=== PATIENT | male | born 1930 | race African-American/Black ===

== ENCOUNTER 2018-07-07 20:01 | Inpatient (IN) | payer MEDICARE ==
[2018-07-07] MEDS ORDERED: NICARDIPINE HCL RTU, ISO-OS 20 MG/200 ML RTUINJ IV PRN (20:26)
--- NOTE | 2018-07-07 20:39 | ER Document Report ---
ED General - General Stated Complaint: HYPERTENSION Time Seen by Provider: 07/07/18 20:25 Mode of Arrival: Medic Information source: Patient, Relative, Emergency Med Personnel Notes: This is an 87-year-old man with a history of hypertension, CVA (left hemiparesis ) recently came down from [place] June 23. Patient has had confusion over the last day and difficulty ambulating. He went to the urgent care and his blood pressure was 270/170 and EMS was called and brought the patient to the ER. He was given 0.2 mg of clonidine at the urgent care prior to transfer. Here in the emergency room, he is alert and answering questions and he does appear somewhat confused. His blood pressure is 253/144 His baseline is that he ambulates with a Rollator and he is unstable at times. - HPI Onset: Yesterday Onset/Duration: Gradual Quality of pain: No pain Severity: None Pain Level: Denies Associated symptoms: denies: Chest pain, Shortness of breath Exacerbated by: Denies Relieved by: Denies Similar symptoms previously: No Recently seen / treated by doctor: No - Related Data Allergies/Adverse Reactions: No Known Allergies Allergy (Unverified 07/07/18 20:48) Past Medical History - General Information source: Patient, Relative - Social History Smoking Status: Never Smoker Cigarette use (# per day): No Chew tobacco use (# tins/day): No Frequency of alcohol use: None Drug Abuse: None Lives with: Family Family History: None Patient has suicidal ideation: No Patient has homicidal ideation: No - Past Medical History Cardiac Medical History: Reports: Hx Hypertension Pulmonary Medical History: Reports: None EENT Medical History: Reports: None Neurological Medical History: Reports: None Endocrine Medical History: Reports: None Renal/ Medical History: Reports: None Malignancy Medical History: Reports None GI Medical History: Reports: None Musculoskeletal Medical History: Reports None Skin Medical History: Reports None Psychiatric Medical History: Reports: None Traumatic Medical History: Reports: None Infectious Medical History: Reports: None Surgical Hx: Negative Review of Systems - Review of Systems Constitutional: denies: Chills, Fever EENT: No symptoms reported Cardiovascular: See HPI. denies: Chest pain, Palpitations, Heart racing Respiratory: No symptoms reported Gastrointestinal: No symptoms reported Genitourinary: No symptoms reported Male Genitourinary: No symptoms reported Musculoskeletal: No symptoms reported Skin: No symptoms reported Hematologic/Lymphatic: No symptoms reported Neurological/Psychological: See HPI Physical Exam - Vital signs Vitals: BP 253/144 H 07/07/18 20:10 Notes: Physical exam: GENERAL: 87-year-old man, alert he does appear confused, no acute distress. Pressure 244/140 HEAD: Atraumatic, normocephalic. EYES: Pupils equal round and reactive to light, extraocular movements intact, sclera anicteric, conjunctiva are normal. ENT: TMs normal, nares patent, oropharynx clear without exudates. Moist mucous membranes. NECK: Normal range of motion, supple without obvious mass or JVD. LUNGS: Breath sounds clear to auscultation bilaterally and equal. No wheezes rales or rhonchi. HEART: Regular rate and rhythm without murmurs, rubs or gallops. ABDOMEN: Soft, normoactive bowel sounds. No tenderness to palpation. No guarding, no rebound. No masses appreciated. EXTREMITIES: Normal range of motion, no pitting or edema. No clubbing or cyanosis. NEUROLOGICAL: Cranial nerves II through XII grossly intact. Normal speech, moving all extremities. PSYCH: Normal mood, normal affect. SKIN: Warm, Dry, normal turgor, no rashes or lesions noted. Course - Re-evaluation Re-evalutation: 07/08/18 01:37 Patient was treated with IV nicardipine drip. Blood pressure was brought down and the drip was is continued. CT of the head shows no bleed. Discern clearly with the confusion/mental status twisting frame changer the last 24 hours in the setting of an excessively elevated blood pressure is that he may have had an ischemic stroke. We will admit the patient to the hospital and follow his blood pressure. - Vital Signs Vital signs: Temp Pulse Resp BP Pulse Ox 12 168/89 H 97 07/07/18 23:31 07/07/18 23:31 07/07/18 23:31 - Laboratory Result Diagrams: 07/07/18 20:40 07/07/18 20:40 Laboratory results interpreted by me: 07/07/18 07/07/18 20:40 20:40 WBC 11.1 H RBC 5.89 H MCH 26.9 L Est GFR (Non-Af Amer) 59 L Creatine Kinase 381 H Total Protein 8.5 H - Diagnostic Test Radiology reviewed: Image reviewed, Reports reviewed - CT shows no acute bleed - EKG Interpretation by Me Rate: Bradycardia Rhythm: NSR - EKG shows sinus bradycardia with a ventricular rate of 57, no acute ST-T wave changes Critical Care Note - Critical Care Note Total time excluding time spent on procedures (mins): 60 Discharge - Discharge Clinical Impression: Altered mental status, Uncontrolled blood pressure Condition: Stable Disposition: ADMITTED INPATIENT Admitting Provider: Hospitalist - Dr Jolley Unit Admitted: Telemetry
[2018-07-07] MEDS ORDERED: NICARDIPINE HCL RTU, ISO-OS 20 MG/200 ML RTUINJ IV ONE (20:43)
[2018-07-07 20:58] LABS: ABSOLUTE BASOPHILS # (AUTO) 0.1 10^3/uL (0.0-0.2); ABSOLUTE EOSINOPHILS # (AUTO) 0.2 10^3/uL (0.0-0.6); ABSOLUTE LYMPHOCYTES (AUTO) 2.3 10^3/uL (0.5-4.7); ABSOLUTE MONOCYTES (AUTO) 0.9 10^3/uL (0.1-1.4); ABSOLUTE NEUT (AUTO) 7.7 10^3/uL (1.7-8.2); EOSINOPHILS % (AUTO) 1.5 % (0-6); HEMATOCRIT 47.6 % (37.9-51.0); HEMOGLOBIN 15.8 g/dL (13.5-17.0); LYMPHOCYTES % (AUTO) 20.6 % (13-45); MEAN CORPUSCULAR HEMOGLOBIN 26.9 pg (27.0-33.4); MEAN CORPUSCULAR HGB CONC 33.2 g/dL (32.0-36.0); MEAN CORPUSCULAR VOLUME 81 fl (80-97); MONOCYTES % (AUTO) 7.8 % (3-13); PLATELET COUNT 221 10^3/uL (150-450); RED BLOOD COUNT 5.89 10^6/uL (4.35-5.55); RED CELL DISTRIBUTION WIDTH 13.9 % (11.5-14.0); SEGMENTED NEUTROPHILS % (AUTO) 69.1 % (42-78); TOTAL CELLS COUNTED % (AUTO) 100 %; WHITE BLOOD COUNT 11.1 10^3/uL (4.0-10.5)
--- NOTE | 2018-07-07 21:15 | RADIOLOGY REPORT (SQ) ---
PROCEDURE: CT OF THE HEAD WITHOUT INTRAVENOUS CONTRAST HISTORY: delta ms Indication: Same as above Comparison: None Technique: The study was done on 07/07/2018 at 9:[address] of the head was done without intravenous contrast was done in the orthogonal planes. This exam was performed according to our departmental dose-optimization program, which includes automated exposure control, adjustment of the mA and/or KV according to the patient's size and/or use of iterative reconstruction technique. FINDINGS: There is no intracranial hemorrhage, midline shift mass effect or acute focal infarct. There is prominence of the sylvian fissures and the cortical sulci reflecting age related volume loss. There is periventricular and deep white matter low attenuation, most likely related to small vessel white matter ischemic disease. If clinical concern exists regarding an acute ischemic/vascular pathology being responsible for patient's symptomatology, an MRI of the brain is more sensitive than the current study, in ruling out such a possibility. There is good edwards/white matter differentiation. The ventricular system is normal. The mastoid air cells are unremarkable . The paranasal sinuses are unremarkable . There is no visualization of acute fractures involving the calvarium or the skull base. IMPRESSION: There is no acute intracranial abnormality. Age related and chronic involutional changes are seen.
[2018-07-07 21:16] LABS: ALANINE AMINOTRANSFERASE 30 U/L (21-72); ALBUMIN 4.5 g/dL (3.5-5.0); ALKALINE PHOSPHATASE 84 U/L (38-126); ANION GAP 15 (5-19); ASPARTATE AMINO TRANSFERASE 38 U/L (17-59); BILIRUBIN,DIRECT 0.4 mg/dL (0.0-0.4); BILIRUBIN,TOTAL 1.1 mg/dL (0.2-1.3); BLOOD UREA NITROGEN 15 mg/dL (7-20); CALCIUM 9.6 mg/dL (8.4-10.2); CARBON DIOXIDE 23 mmol/L (22-30); CHLORIDE 104 mmol/L (98-107); CREATINE KINASE 381 U/L (55-170); GLUCOSE 83 mg/dL (75-110); POTASSIUM 4.1 mmol/L (3.6-5.0); SODIUM 141.8 mmol/L (137-145); TOTAL PROTEIN 8.5 g/dL (6.3-8.2)
--- NOTE | 2018-07-07 21:17 | RADIOLOGY REPORT (SQ) ---
PROCEDURE: XR CHEST 1 VIEW HISTORY: confusion COMPARISON: None TECHNIQUE: The study was done on 07/07/2018 at 9:07 PM Single projection of the chest was done. FINDINGS: There is soft tissue swelling in the right paratracheal region of uncertain etiology. There are no discrete airspace infiltrates, pneumothoraces or pleural effusions. The pulmonary vascularity is normal. The cardiomediastinal silhouette is otherwise unremarkable. IMPRESSION: There is soft tissue swelling in the right paratracheal region of uncertain etiology. This could be due to prominent superior vena cava or due to a mass and needs to be further assessed with a dedicated CT of the chest .
[2018-07-07 21:31] LABS: CREATINE KINASE MB 1.11 ng/mL (<4.55)
[2018-07-07 21:34] LABS: TROPONIN I 0.05 ng/mL
[2018-07-08] MEDS ORDERED: ACETAMINOPHEN 325 MG TABLET PO PRN (00:20)
[2018-07-08] MEDS ORDERED: PROMETHAZINE HCL 25 MG TABLET PO PRN (00:20)
[2018-07-08] MEDS ORDERED: MAG HYDROX/AL HYDROX/SIMETH SUSP 30 ML UDCUP PO PRN (00:20)
[2018-07-08] MEDS ORDERED: HYDRALAZINE HCL 50 MG TABLET PO ONE (00:45)
--- NOTE | 2018-07-08 00:55 | PDOC H&P ---
History of Present Illness Admission Date/PCP: 07/08/2018 None Patient complains of: Altered Mental Status History of Present Illness: KIM GANDHI is a 87 year old male who comes to the emergency department with altered mental status, niece and sister are at the bedside. Her niece tells me that 2 days ago his mood has change, he was more argumentative and blue. She tells me that they have been doing a lot of exercising lately as he is staying with them from [place] since 06/23, niece tells me that he used to be laying in the bed most of the day in [place]. Tells me that he takes his medications in the wrong way, not as prescribed. Walks with a Rollator walker. Thursday was noted weaker, has to be walking with assistance. Thursday he has been hearing music all night, was talking about babies, was incontinent which is not his baseline, he was confusing his family members with somebody else. He was taken to the Urgent clinic where his blood pressure was noted 270/170, given 0.2 of clonidine p.o. Patient was sent to the emergency department and was a started on Nicardipine drip; it was discontinue the pressure was 160s over 80s. Still encephalopathic but improved from prior. Past Medical History Cardiac Medical History: Reports: Hypertension Neurological Medical History: Reports: Ischemic CVA Neurological History Note: Minimal left hemiparesis Past Surgical History Past Surgical History: Right knee surgery Past Surgical History: Reports: Other Social History Information Source: Relative Lives with: Family Smoking Status: Never Smoker Frequency of Alcohol Use: None Hx Recreational Drug Use: No Hx Prescription Drug Abuse: No Family History Parental Family History Reviewed: Yes - Mother with history of cva in her 70s Children Family History Reviewed: Unknown Sibling(s) Family History Reviewed.: Unknown Medication/Allergy Allergies/Adverse Reactions: No Known Allergies Allergy (Unverified 07/07/18 20:48) Review of Systems Review of Systems: As outlined in the HPI, others negative. Of note of the patient is still a mild encephalopathic Physical Exam Vital Signs: Temp Pulse Resp BP Pulse Ox 12 168/89 H 97 07/07/18 23:31 07/07/18 23:31 07/07/18 23:31 Intake & Output 07/06/18 07/07/18 07/08/18 06:59 06:59 06:59 Intake Total 35 Balance 35 Weight 77.111 kg Additional comments: General appearance: Well-developed, well-nourished, alert and cooperative, and appears to be in no acute distress Head: Normocephalic Eyes: PEERL, EOMI, vision is grossly intact. Ears: External auditory canal and tympanic membranes clear, hearing grossly intact. Nose: No nasal discharge. Throat: Oral cavity and pharynx normal. No inflammation, swelling, exudate or lesions. Neck: Neck supple, nontender without lymphadenopathy, masses or thyromegaly. Cardiac: Normal S1 and S2. No S3, S4 or murmurs. Rhythm is regular. There is no peripheral edema, cyanosis or pallor. Extremities are warm and well perfused. Capillary refill is less than 2 seconds. No carotid bruits. Lungs: Clear to auscultation and percussion without rales, rhonchi, wheezing or diminished breath sounds. Not using accessory muscles. Abdomen: Positive bowel sounds. Soft. Nondistended, nontender. No guarding or rebound. No masses. No hepatosplenomegaly Extremities: No significant deformity or joint abnormality. No edema. Peripheral pulses intact. No varicosities. Neurological: Cranial nerves II through XII grossly intact. Strength and sensation symmetric and intact throughout. Reflexes 2+ throughout. Skin: Skin normal color, texture and turgor with no lesions or eruptions, warm and dry. Psychiatric: The mental examination revealed the patient was oriented to person , place and time, he has hard time recognizing his niece and sister at the bedside Results Laboratory Results: 07/07/18 20:40 07/07/18 20:40 07/07/18 07/07/18 20:40 20:40 WBC 11.1 H RBC 5.89 H Hgb 15.8 Hct 47.6 MCV 81 MCH 26.9 L MCHC 33.2 RDW 13.9 Plt Count 221 Seg Neutrophils % 69.1 Lymphocytes % 20.6 Monocytes % 7.8 Eosinophils % 1.5 Basophils % 1.0 Absolute Neutrophils 7.7 Absolute Lymphocytes 2.3 Absolute Monocytes 0.9 Absolute Eosinophils 0.2 Absolute Basophils 0.1 Sodium 141.8 Potassium 4.1 Chloride 104 Carbon Dioxide 23 Anion Gap 15 BUN 15 Creatinine 1.18 Est GFR ( Amer) > 60 Est GFR (Non-Af Amer) 59 L Glucose 83 Calcium 9.6 Total Bilirubin 1.1 AST 38 ALT 30 Alkaline Phosphatase 84 Total Protein 8.5 H Albumin 4.5 07/07/18 07/07/18 20:40 20:40 Creatine Kinase 381 H CK-MB (CK-2) 1.11 Troponin I 0.050 Impressions: Chest X-Ray 07/07/18 20:25 IMPRESSION: There is soft tissue swelling in the right paratracheal region of uncertain etiology. This could be due to prominent superior vena cava or due to a mass and needs to be further assessed with a dedicated CT of the chest . Head CT 07/07/18 20:26 IMPRESSION: There is no acute intracranial abnormality. Age related and chronic involutional changes are seen. Assessment & Plan - Diagnosis (1) Hypertensive encephalopathy Is this a current diagnosis for this admission?: Yes Plan: Patient had initially a blood pressure of 270/170 in the urgent care, 0.2 mg of clonidine given, upon arrival to our facility blood pressure was 253/144, patient is started on nicardipine drip that was read discontinue. Last blood pressure was 160s over 90s, patient has a still encephalopathy but is improving. I noted that the patient became bradycardic with a heart rate in the 50s. Patient is at home on lisinopril 2.5 mg daily and clonidine 0.1 mg twice daily but he has been taking this medication once a day. Due to his bradycardia I will place him on hydralazine 50 mg 3 times a day and I will increase lisinopril to 5 mg daily. IV hydralazine as needed. Will close monitor of his mental status. Telemetry monitoring. Cardiac enzymes 3. Patient is asymptomatic. We will have permissive hypertension overnight. Mild elevation of troponins 0.05, As I said before we will cycle these 3. CT head negative. (2) Hypertension Is this a current diagnosis for this admission?: Yes Plan: As Above - Time Time Spent: 30 to 50 Minutes
--- NOTE | 2018-07-08 01:18 | RADIOLOGY REPORT (SQ) ---
EXAM DESCRIPTION: CT CHEST WITH IV CONTRAST COMPLETED DATE/TME: 07/07/2018 22:44 CLINICAL HISTORY: mass chest COMPARISON: Chest radiograph performed 07/07/2018 TECHNIQUE: Axial CT images of the chest obtained following the uncomplicated intravenous administration of 80 mL Omnipaque 350 from the thoracic inlet through the diaphragm. Coronal and sagittal reformatted images available. DLP: 516.48 mGy-cm FINDINGS: Chest: Thyroid:No abnormalities of the visualized thyroid. Great Vessels:Great vessels have normal anatomic configuration. Thoracic Aorta: Atherosclerotic calcification of the thoracic aorta. Pulmonary arteries:The main pulmonary artery is not dilated. Heart: Coronary artery atherosclerosis. No cardiomegaly or pericardial effusion. Lymph Nodes:No enlarged mediastinal lymph nodes identified. Esophagus:No abnormalities of the esophagus identified Other: Soft tissue abnormality noted on chest x-ray is due to tortuosity of the right brachiocephalic artery and right internal carotid artery. Lungs: Minimal bilateral dependent atelectasis. No mass or concerning pulmonary nodule identified. Pleura:No pleural effusion or pneumothorax. Trachea/Airways:No abnormalities of the visualized trachea or airways. Bones: No acute abnormalities of the trachea. Upper Abdomen:Limited images of the upper abdomen demonstrate no definite abnormalities of visualized portions of the liver, pancreas, and spleen. Prior cholecystectomy. IMPRESSION: 1. Soft tissue abnormality noted on chest x-ray is due to tortuosity of the right brachiocephalic artery and right internal carotid artery. No pulmonary masses identified. 2. Coronary artery atherosclerosis. This exam was performed according to our departmental dose-optimization program, which includes automated exposure control, adjustment of the mA and/or kV according to patient size and/or use of iterative reconstruction technique.
[2018-07-08] MEDS: HYDRALAZINE HCL INJ/PF 20 MG/1 ML SDV IV PRN ×3 (02:14→18:44)
[2018-07-08 04:08] LABS: APPEARANCE,URINE CLEAR; BILIRUBIN,URINE NEGATIVE (NEGATIVE); COLOR,URINE STRAW; GLUCOSE, URINE NEGATIVE (NEGATIVE); KETONES,URINE NEGATIVE (NEGATIVE); LEUKOCYTE ESTERASE,URINE NEGATIVE (NEGATIVE); NITRITE,URINE NEGATIVE (NEGATIVE); PROTEIN,URINE NEGATIVE (NEGATIVE); URINE SPECIFIC GRAVITY 1.014; UROBILINOGEN,URINE NEGATIVE mg/dL (<2.0)
[2018-07-08] MEDS ORDERED: HYDRALAZINE HCL 50 MG TABLET PO SCH (06:00)
[2018-07-08] MEDS ORDERED: LISINOPRIL 5 MG TABLET PO SCH (08:00)
--- NOTE | 2018-07-08 08:20 | EKG REPORT ---
SEVERITY:- ABNORMAL ECG - SINUS RHYTHM CONSIDER LEFT VENTRICULAR HYPERTROPHY : Confirmed by: Timothy Palma MD 08-Jul-2018 07:33:44
[2018-07-08 09:19] LABS: ABSOLUTE BASOPHILS # (AUTO) 0.1 10^3/uL (0.0-0.2); ABSOLUTE EOSINOPHILS # (AUTO) 0.2 10^3/uL (0.0-0.6); ABSOLUTE LYMPHOCYTES (AUTO) 1.9 10^3/uL (0.5-4.7); ABSOLUTE MONOCYTES (AUTO) 0.6 10^3/uL (0.1-1.4); ABSOLUTE NEUT (AUTO) 7.3 10^3/uL (1.7-8.2); BASOPHILS % (AUTO) 0.9 % (0-2); EOSINOPHILS % (AUTO) 1.8 % (0-6); HEMATOCRIT 50.9 % (37.9-51.0); LYMPHOCYTES % (AUTO) 18.6 % (13-45); MEAN CORPUSCULAR HEMOGLOBIN 26.9 pg (27.0-33.4); MEAN CORPUSCULAR HGB CONC 33.4 g/dL (32.0-36.0); MEAN CORPUSCULAR VOLUME 81 fl (80-97); MONOCYTES % (AUTO) 6.2 % (3-13); PLATELET COUNT 216 10^3/uL (150-450); RED BLOOD COUNT 6.32 10^6/uL (4.35-5.55); RED CELL DISTRIBUTION WIDTH 14.1 % (11.5-14.0); SEGMENTED NEUTROPHILS % (AUTO) 72.5 % (42-78); TOTAL CELLS COUNTED % (AUTO) 100 %; WHITE BLOOD COUNT 10.1 10^3/uL (4.0-10.5)
[2018-07-08 09:29] LABS: URINE AMPHETAMINES SCREEN NEGATIVE; URINE BARBITURATES SCREEN NEGATIVE; URINE BENZODIAZEPINES SCREEN NEGATIVE; URINE COCAINE SCREEN NEGATIVE; URINE MARIJUANA (THC) SCREEN NEGATIVE; URINE METHADONE SCREEN NEGATIVE; URINE PHENCYCLIDINE SCREEN NEGATIVE
[2018-07-08 09:29] LABS: ANION GAP 14 (5-19); BLOOD UREA NITROGEN 13 mg/dL (7-20); CARBON DIOXIDE 24 mmol/L (22-30); CHLORIDE 104 mmol/L (98-107); CHOLESTEROL 176.07 mg/dL (0-200); DIRECT LDL 107 mg/dL (<100); GLUCOSE 93 mg/dL (75-110); POTASSIUM 3.6 mmol/L (3.6-5.0); SODIUM 141.8 mmol/L (137-145); TRIGLYCERIDES 108 mg/dL (<150); VLDL CHOLESTEROL 21.6 mg/dL (10-31)
[2018-07-08] MEDS ORDERED: LISINOPRIL 10 MG TABLET PO ONE (10:30)
[2018-07-08] MEDS: ENOXAPARIN SODIUM INJ 40 MG/0.4 ML DISP.SYRIN SUBCUT SCH (10:36)
[2018-07-08] MEDS ORDERED: AMLODIPINE BESYLATE 2.5 MG TABLET PO PRN (14:04)
--- NOTE | 2018-07-08 16:44 | PDOC PROGRESS REPORT ---
Subjective Progress Note for:: 07/08/18 Subjective:: KIM GANDHI is a 87 year old male who came to the emergency department with altered mental status beginning 2 days [facility] evidenced by mood swings and being argumentative, progressing to confusion and auditory hallucinations. He tells me that he takes his medications as prescribed and walks with a wheeled walker when he is at his baseline. When ask how he is doing today he states, "My blood pressure was high but they tell me it is better now. I don't know I don't feel any different." He denies pain and all other acute symptoms including angina, nausea, dyspnea, diaphoresis, headache, weakness, numbness or tingling and dizziness. Reason For Visit: Hypertensive emergency with acute encephalopathy Physical Exam Vital Signs: Temp Pulse Resp BP Pulse Ox 15 184/94 H 95 07/08/18 15:31 07/08/18 15:31 07/08/18 15:31 General appearance: PRESENT: no acute distress, cooperative Head exam: PRESENT: atraumatic, normocephalic Eye exam: PRESENT: conjunctiva pink, EOMI, PERRLA. ABSENT: nystagmus, scleral icterus Ear exam: PRESENT: normal external ear exam. ABSENT: bleeding, drainage Mouth exam: PRESENT: moist, neck supple, tongue midline Neck exam: PRESENT: full ROM. ABSENT: JVD, meningismus, tenderness, thyromegaly , tracheal deviation Respiratory exam: PRESENT: clear to auscultation beth[place], symmetrical, unlabored Cardiovascular exam: PRESENT: RRR. ABSENT: clicks, diastolic murmur, gallop, rubs, systolic murmur, tachycardia Pulses: PRESENT: normal carotid pulses, normal radial pulses, normal dorsalis pedis pul Vascular exam: PRESENT: normal capillary refill. ABSENT: pallor GI/Abdominal exam: PRESENT: normal bowel sounds, soft. ABSENT: distended, tenderness Rectal exam: PRESENT: deferred Extremities exam: ABSENT: clubbing, joint swelling, pedal edema Musculoskeletal exam: PRESENT: full ROM, normal inspection. ABSENT: tenderness Neurological exam: PRESENT: alert, awake, oriented to person, oriented to place , oriented to situation, CN II-XII grossly intact. ABSENT: oriented to time, motor sensory deficit Psychiatric exam: PRESENT: appropriate affect, normal mood Skin exam: ABSENT: jaundice, rash, urticaria Results Laboratory Results: 07/08/18 06:23 07/08/18 06:23 07/08/18 07/08/18 06:23 06:23 WBC 10.1 RBC 6.32 H Hgb 17.0 Hct 50.9 MCV 81 MCH 26.9 L MCHC 33.4 RDW 14.1 H Plt Count 216 Seg Neutrophils % 72.5 Lymphocytes % 18.6 Monocytes % 6.2 Eosinophils % 1.8 Basophils % 0.9 Absolute Neutrophils 7.3 Absolute Lymphocytes 1.9 Absolute Monocytes 0.6 Absolute Eosinophils 0.2 Absolute Basophils 0.1 Sodium 141.8 Potassium 3.6 Chloride 104 Carbon Dioxide 24 Anion Gap 14 BUN 13 Creatinine 1.17 Est GFR ( Amer) > 60 Est GFR (Non-Af Amer) 59 L Glucose 93 Calcium 10.0 Magnesium 2.1 Triglycerides 108 Cholesterol 176.07 LDL Cholesterol Direct 107 H VLDL Cholesterol 21.6 HDL Cholesterol 45 07/08/18 07/08/18 06:23 12:40 Troponin I 0.052 0.106 EKG Comments: Sinus Bradycardia @ 57 BPM, LVH Impressions: Chest X-Ray 07/07/18 20:25 IMPRESSION: There is soft tissue swelling in the right paratracheal region of uncertain etiology. This could be due to prominent superior vena cava or due to a mass and needs to be further assessed with a dedicated CT of the chest . Head CT 07/07/18 20:26 IMPRESSION: There is no acute intracranial abnormality. Age related and chronic involutional changes are seen. Chest CT 07/07/18 22:44 IMPRESSION: 1. Soft tissue abnormality noted on chest x-ray is due to tortuosity of the right brachiocephalic artery and right internal carotid artery. No pulmonary masses identified. 2. Coronary artery atherosclerosis. This exam was performed according to our departmental dose-optimization program, which includes automated exposure control, adjustment of the mA and/or kV according to patient size and/or use of iterative reconstruction technique. Assessment & Plan - Diagnosis (1) Hypertensive emergency without congestive heart failure Is this a current diagnosis for this admission?: Yes Plan: Control BP with appropriate antihypertensive agents. Observe for continued resolution of end organ symptoms (encephalopathy). Monitor other systems that may have been affected. (2) Acute encephalopathy Is this a current diagnosis for this admission?: Yes Plan: Control BP and provide supportive care. MEND assessments q4hr. - Time Time Spent with patient: 35 or more minutes Medications reviewed and adjusted accordingly: Yes Anticipated discharge: Home
[2018-07-08] MEDS: AMLODIPINE BESYLATE 10 MG TABLET PO SCH (17:00)
[2018-07-09] MEDS: HYDRALAZINE HCL INJ/PF 20 MG/1 ML SDV IV PRN ×3 (01:25→21:32)
[2018-07-09] MEDS ORDERED: METOPROLOL TARTRATE 25 MG TABLET PO PRN (04:08)
[2018-07-09] MEDS ORDERED: METOPROLOL TARTRATE PF/INJ 5 MG/5 ML SDV IV ONE (04:15)
[2018-07-09 05:46] LABS: ABSOLUTE BASOPHILS # (AUTO) 0.1 10^3/uL (0.0-0.2); ABSOLUTE EOSINOPHILS # (AUTO) 0.1 10^3/uL (0.0-0.6); ABSOLUTE LYMPHOCYTES (AUTO) 1.6 10^3/uL (0.5-4.7); ABSOLUTE MONOCYTES (AUTO) 0.9 10^3/uL (0.1-1.4); ABSOLUTE NEUT (AUTO) 9.7 10^3/uL (1.7-8.2); BASOPHILS % (AUTO) 0.8 % (0-2); EOSINOPHILS % (AUTO) 0.4 % (0-6); LYMPHOCYTES % (AUTO) 12.7 % (13-45); MEAN CORPUSCULAR HGB CONC 33.9 g/dL (32.0-36.0); MEAN CORPUSCULAR VOLUME 80 fl (80-97); PLATELET COUNT 225 10^3/uL (150-450); RED BLOOD COUNT 6.29 10^6/uL (4.35-5.55); RED CELL DISTRIBUTION WIDTH 13.8 % (11.5-14.0); SEGMENTED NEUTROPHILS % (AUTO) 79.1 % (42-78); TOTAL CELLS COUNTED % (AUTO) 100 %; WHITE BLOOD COUNT 12.3 10^3/uL (4.0-10.5)
[2018-07-09 06:09] LABS: ANION GAP 14 (5-19); BLOOD UREA NITROGEN 26 mg/dL (7-20); CALCIUM 9.6 mg/dL (8.4-10.2); CARBON DIOXIDE 24 mmol/L (22-30); CHLORIDE 103 mmol/L (98-107); CHOLESTEROL 163.09 mg/dL (0-200); GLUCOSE 116 mg/dL (75-110); POTASSIUM 3.6 mmol/L (3.6-5.0); SODIUM 140.7 mmol/L (137-145); TRIGLYCERIDES 84 mg/dL (<150)
[2018-07-09 06:20] LABS: DIRECT LDL 92 mg/dL (<100)
[2018-07-09] MEDS ORDERED: LISINOPRIL 10 MG TABLET PO SCH ×2 (08:00→10:00)
[2018-07-09] MEDS ORDERED: LISINOPRIL 5 MG TABLET PO SCH (08:00)
[2018-07-09] MEDS: AMLODIPINE BESYLATE 10 MG TABLET PO SCH (09:13)
[2018-07-09] MEDS: ENOXAPARIN SODIUM INJ 40 MG/0.4 ML DISP.SYRIN SUBCUT SCH (09:13)
--- NOTE | 2018-07-09 22:44 | PDOC PROGRESS REPORT ---
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 He tells me that he takes his medications as prescribed and walks with a wheeled walker when he is at his baseline. When ask how he is doing today he states, "My blood pressure was high but they tell me it is better now. I don't know I don't feel any different." He denies pain and all other acute symptoms including angina, nausea, dyspnea, diaphoresis, headache, weakness, numbness or tingling and dizziness. Reason For Visit: HYPERTENSIVE ENCEPHALOPATHY Physical Exam Vital Signs: Temp Pulse Resp BP Pulse Ox 98.7 F 104 H 16 158/106 H 97 07/09/18 19:32 07/09/18 19:32 07/09/18 19:32 07/09/18 19:32 07/09/18 19:32 Intake & Output 07/08/18 07/09/18 07/10/18 06:59 06:59 06:59 Intake Total 200 Balance 200 Weight 170 kg General appearance: PRESENT: no acute distress, cooperative Head exam: PRESENT: atraumatic, normocephalic Eye exam: PRESENT: conjunctiva pink. ABSENT: scleral icterus Ear exam: PRESENT: normal external ear exam. ABSENT: bleeding Mouth exam: PRESENT: neck supple, tongue midline Neck exam: ABSENT: JVD, tracheal deviation Respiratory exam: PRESENT: clear to auscultation bethany, symmetrical, unlabored Cardiovascular exam: PRESENT: RRR. ABSENT: clicks, diastolic murmur, gallop, rubs, systolic murmur Pulses: PRESENT: normal carotid pulses, normal radial pulses, normal dorsalis pedis pul Vascular exam: PRESENT: normal capillary refill. ABSENT: pallor GI/Abdominal exam: PRESENT: normal bowel sounds, soft. ABSENT: distended, tenderness Extremities exam: ABSENT: joint swelling, pedal edema Musculoskeletal exam: PRESENT: full ROM, normal inspection Neurological exam: PRESENT: alert, awake, oriented to person, oriented to place , oriented to time, oriented to situation, CN II-XII grossly intact. ABSENT: motor sensory deficit Psychiatric exam: PRESENT: appropriate affect, normal mood Skin exam: ABSENT: jaundice, rash, urticaria Results Laboratory Results: 07/09/18 05:38 07/09/18 05:38 07/09/18 07/09/18 05:38 05:38 WBC 12.3 H RBC 6.29 H Hgb 17.0 Hct 50.0 MCV 80 MCH 27.0 MCHC 33.9 RDW 13.8 Plt Count 225 Seg Neutrophils % 79.1 H Lymphocytes % 12.7 L Monocytes % 7.0 Eosinophils % 0.4 Basophils % 0.8 Absolute Neutrophils 9.7 H Absolute Lymphocytes 1.6 Absolute Monocytes 0.9 Absolute Eosinophils 0.1 Absolute Basophils 0.1 Sodium 140.7 Potassium 3.6 Chloride 103 Carbon Dioxide 24 Anion Gap 14 BUN 26 H Creatinine 1.61 H Est GFR ( Amer) 49 L Est GFR (Non-Af Amer) 41 L Glucose 116 H Calcium 9.6 Magnesium 2.0 Triglycerides 84 Cholesterol 163.09 LDL Cholesterol Direct 92 VLDL Cholesterol 17.0 HDL Cholesterol 35 L Impressions: Chest X-Ray 07/07/18 20:25 IMPRESSION: There is soft tissue swelling in the right paratracheal region of uncertain etiology. This could be due to prominent superior vena cava or due to a mass and needs to be further assessed with a dedicated CT of the chest . Head CT 07/07/18 20:26 IMPRESSION: There is no acute intracranial abnormality. Age related and chronic involutional changes are seen. Chest CT 07/07/18 22:44 IMPRESSION: 1. Soft tissue abnormality noted on chest x-ray is due to tortuosity of the right brachiocephalic artery and right internal carotid artery. No pulmonary masses identified. 2. Coronary artery atherosclerosis. This exam was performed according to our departmental dose-optimization program, which includes automated exposure control, adjustment of the mA and/or kV according to patient size and/or use of iterative reconstruction technique. Assessment & Plan - Diagnosis (1) Hypertensive emergency without congestive heart failure Is this a current diagnosis for this admission?: Yes Plan: Control BP with appropriate antihypertensive agents. Observe for continued resolution of end organ symptoms (encephalopathy). Monitor other systems that may have been affected. Discontinued lisinopril in favor of 100 mg Toprol-xl daily while continuing use of amlodipine 10 mg daily. Discharge was planned but not undertaken at the time of this writing as he may have family transportation issues. BP control is fair though not at target and may require refinement in outpatient follow up. (2) Acute encephalopathy Is this a current diagnosis for this admission?: Yes Plan: Control BP and provide supportive care. MEND assessments q4hr. Symptoms have resolved at this point and the patient is ready for discharge. - Time Time Spent with patient: 35 or more minutes Medications reviewed and adjusted accordingly: Yes Anticipated discharge: Home Within: within 24 hours
[2018-07-10] MEDS: AMLODIPINE BESYLATE 10 MG TABLET PO SCH (09:35)
[2018-07-10] MEDS: METOPROLOL SUCCINATE 50 MG TAB.SR.24H PO SCH (09:35)
[2018-07-10] MEDS: HEPARIN SOD (PORCINE) 5,000 UNIT/ML 1 ML SYRINGE SUBCUT SCH ×2 (11:03→22:15)
--- NOTE | 2018-07-10 13:03 | PDOC PROGRESS REPORT ---
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 He tells me that he takes his medications as prescribed and walks with a wheeled walker when he is at his baseline. When ask how he is doing today he states, "My blood pressure was high but they tell me it is better now. I don't know I don't feel any different." He denies pain and all other acute symptoms including angina, nausea, dyspnea, diaphoresis, headache, weakness, numbness or tingling and dizziness. 07/10/18: Mynor is doing well today and states that he has been feeling fine he was trying to arrange for his sister to come and get him and take him home but social work msw were unable to reach his sister yesterday when they phoned. There was no way to leave a number and therefore he is still here today. His blood pressure control is showing significant improvement from yesterday with increase in the dose of metoprolol and discontinuation of lisinopril. He is agreeable to having his blood work checked every morning until such time as he is discharged when his family can be reached in order to have them take him home. He denies any confusion or hallucinations and he has been noted by staff to be of a very pleasant mood and temperament. Reason For Visit: Acute hypertensive emergency without heart failure Physical Exam Vital Signs: Temp Pulse Resp BP Pulse Ox 98.4 F 82 16 133/81 H 99 07/10/18 08:34 07/10/18 08:34 07/10/18 08:34 07/10/18 08:34 07/10/18 08:34 Intake & Output 07/09/18 07/10/18 07/11/18 06:59 06:59 06:59 Intake Total 200 Balance 200 Weight 170 kg 169.7 kg General appearance: PRESENT: no acute distress, cooperative Head exam: PRESENT: atraumatic, normocephalic Eye exam: PRESENT: conjunctiva pink. ABSENT: conjunctival injection Ear exam: PRESENT: normal external ear exam. ABSENT: drainage Mouth exam: PRESENT: neck supple, tongue midline Neck exam: ABSENT: thyromegaly, tracheal deviation Respiratory exam: PRESENT: clear to auscultation bethany, symmetrical, unlabored Cardiovascular exam: PRESENT: RRR. ABSENT: clicks, gallop, rubs Vascular exam: PRESENT: normal capillary refill. ABSENT: pallor GI/Abdominal exam: PRESENT: normal bowel sounds, soft Extremities exam: ABSENT: joint swelling, pedal edema Musculoskeletal exam: PRESENT: full ROM, normal inspection Neurological exam: PRESENT: alert, awake, oriented to person, oriented to place , oriented to time, oriented to situation, CN II-XII grossly intact. ABSENT: motor sensory deficit Psychiatric exam: PRESENT: appropriate affect, normal mood Skin exam: ABSENT: jaundice, rash, urticaria Results Laboratory Results: 07/09/18 05:38 07/09/18 05:38 Impressions: Chest X-Ray 07/07/18 20:25 IMPRESSION: There is soft tissue swelling in the right paratracheal region of uncertain etiology. This could be due to prominent superior vena cava or due to a mass and needs to be further assessed with a dedicated CT of the chest . Head CT 07/07/18 20:26 IMPRESSION: There is no acute intracranial abnormality. Age related and chronic involutional changes are seen. Chest CT 07/07/18 22:44 IMPRESSION: 1. Soft tissue abnormality noted on chest x-ray is due to tortuosity of the right brachiocephalic artery and right internal carotid artery. No pulmonary masses identified. 2. Coronary artery atherosclerosis. This exam was performed according to our departmental dose-optimization program, which includes automated exposure control, adjustment of the mA and/or kV according to patient size and/or use of iterative reconstruction technique. Assessment & Plan - Diagnosis (1) Hypertensive emergency without congestive heart failure Is this a current diagnosis for this admission?: Yes Plan: Control BP with appropriate antihypertensive agents. Observe for continued resolution of end organ symptoms (encephalopathy). Monitor other systems that may have been affected. Discontinued lisinopril in favor of 100 mg Toprol-xl daily while continuing use of amlodipine 10 mg daily. Discharge was planned but not undertaken at the time of this writing as he may have family transportation issues. BP control is fair though not at target and may require refinement in outpatient follow up. (2) Acute encephalopathy Is this a current diagnosis for this admission?: Yes Plan: Control BP and provide supportive care. MEND assessments q4hr. Symptoms have resolved at this point and the patient is ready for discharge. - Time Time Spent with patient: 25-34 minutes Medications reviewed and adjusted accordingly: Yes Anticipated discharge: Home Within: Other - When family can be reached to come and get him and take him home.
[2018-07-10 13:25] LABS: HEMATOCRIT 48.2 % (37.9-51.0); HEMOGLOBIN 16.2 g/dL (13.5-17.0); MEAN CORPUSCULAR HEMOGLOBIN 27.1 pg (27.0-33.4); MEAN CORPUSCULAR HGB CONC 33.7 g/dL (32.0-36.0); MEAN CORPUSCULAR VOLUME 81 fl (80-97); PLATELET COUNT 253 10^3/uL (150-450); RED BLOOD COUNT 5.99 10^6/uL (4.35-5.55); RED CELL DISTRIBUTION WIDTH 14.4 % (11.5-14.0); WHITE BLOOD COUNT 10.7 10^3/uL (4.0-10.5)
[2018-07-10 14:02] LABS: ANION GAP 11 (5-19); BLOOD UREA NITROGEN 30 mg/dL (7-20); CALCIUM 9.8 mg/dL (8.4-10.2); CARBON DIOXIDE 27 mmol/L (22-30); CHLORIDE 104 mmol/L (98-107); GLUCOSE 126 mg/dL (75-110); POTASSIUM 3.4 mmol/L (3.6-5.0)
[2018-07-11] MEDS: METOPROLOL SUCCINATE 50 MG TAB.SR.24H PO SCH (09:59)
[2018-07-11] MEDS: AMLODIPINE BESYLATE 10 MG TABLET PO SCH (09:59)
[2018-07-11] MEDS: HEPARIN SOD (PORCINE) 5,000 UNIT/ML 1 ML SYRINGE SUBCUT SCH (09:59)
[2018-07-11] MEDS: HYDRALAZINE HCL INJ/PF 20 MG/1 ML SDV IV PRN (12:31)
--- NOTE | 2018-07-11 15:24 | PDOC DISCHARGE SUMMARY ---
General - Admit/Disc Date/PCP Admission Date/Primary Care Provider: 07/08/18 14:38 Discharge Date: 07/11/18 - Discharge Diagnosis (1) Hypertensive emergency without congestive heart failure Is this a current diagnosis for this admission?: Yes Summary: Patient was treated initially with IV nicardipine and his blood pressure responded well. His encephalopathy cleared to some degree but was still persistent and he was therefore admitted to the hospital. His blood pressure was treated with oral agents until satisfactory response was achieved. He was then felt to be ready for discharge to outpatient follow-up in 1-2 weeks with oral antihypertensive agents and home health for physical therapy and alf therapy. (2) Acute encephalopathy Is this a current diagnosis for this admission?: Yes Summary: His acute encephalopathy responded well to treatment of the underlying hypertension at this point he appears to be alert and oriented 4 his short and long-term memories are reasonably intact to the best of my assessment. His family members state that he still seems to be confused to them. Ongoing assessment and treatment of this will be done on outpatient basis. - Additional Information Resuscitation Status: Full Code Discharge Diet: Cardiac, Other (Comments) - Encouraage oral fluids especially water. Discharge Activity: Activity As Tolerated, Balance Activity w/Rest Prescriptions: Amlodipine Besylate [Norvasc 10 mg Tablet] 10 mg PO PCBRKFST 30 Days #30 tablet Metoprolol Succinate 100 mg PO PCBRKFST 30 Days #30 tab.er.24h Home Medications: Amlodipine Besylate [Norvasc 10 mg Tablet] 10 mg PO PCBRKFST 30 Days #30 tablet 07/09/18 Metoprolol Succinate 100 mg PO PCBRKFST 30 Days #30 tab.er.24h 07/09/18 History of Present Illness Patient complains of: Altered mental status History of Present Illness: KIM GANDHI is a 87 year old male who comes to the emergency department with altered mental status, niece and sister are at the bedside. His niece tells me that 2 days ago his mood changed and he became confused, argumentative and volatile and was also noted to be generally weaker. One day ago he began to have auditory hallucinations and he became incontinent of urine. His niece states that they have been doing a lot of exercising lately as he is staying with them since moving from [place] about 2 weeks ago. His niece further adds that he used to be laying in bed most of the day in [place]. He walks with a Rollator walker. He was taken to the Urgent care clinic where his blood pressure was noted 270/ 170, given 0.2 of clonidine p.o. and then was sent to the emergency department where he was a started on Nicardipine drip until his blood pressure was 160s over 80s. 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 He tells me that he takes his medications as prescribed and walks with a wheeled walker when he is at his baseline. When ask how he is doing today he states, "My blood pressure was high but they tell me it is better now. I don't know I don't feel any different." He denies pain and all other acute symptoms including angina, nausea, dyspnea, diaphoresis, headache, weakness, numbness or tingling and dizziness. 07/10/18: Mynor is doing well today and states that he has been feeling fine he was trying to arrange for his sister to come and get him and take him home but psych social worker were unable to reach his sister yesterday when they phoned. There was no way to leave a number and therefore he is still here today. His blood pressure control is showing significant improvement from yesterday with increase in the dose of metoprolol and discontinuation of lisinopril. He is agreeable to having his blood work checked every morning until such time as he is discharged when his family can be reached in order to have them take him home. He denies any confusion or hallucinations and he has been noted by staff to be of a very pleasant mood and temperament. 07/11/18: Mynor is again doing well today and his family is here to take him home. He states he feels fine denies any headache, palpitations, focal weakness, chest pain, nausea, vomiting, numbness, tingling, dizziness or syncope. His blood pressure is reasonably well-controlled for initial therapy. He will be seen in follow-up by his primary care provider in 1-2 weeks for further evaluation and treatment. Physical Exam Vital Signs: Temp Pulse Resp BP Pulse Ox 98.3 F 66 18 173/88 H 98 07/11/18 11:13 07/11/18 14:00 07/11/18 11:13 07/11/18 11:13 07/11/18 11:13 Intake & Output 07/10/18 07/11/18 07/12/18 06:59 06:59 06:59 Intake Total 200 700 685 Balance 200 700 685 Weight 169.7 kg General appearance: PRESENT: no acute distress, cooperative Head exam: PRESENT: atraumatic, normocephalic Eye exam: PRESENT: conjunctiva pink. ABSENT: conjunctival injection Ear exam: PRESENT: normal external ear exam. ABSENT: drainage Mouth exam: PRESENT: moist, neck supple Neck exam: ABSENT: thyromegaly, tracheal deviation Respiratory exam: PRESENT: clear to auscultation bethany, symmetrical, unlabored Cardiovascular exam: PRESENT: RRR. ABSENT: clicks, gallop, rubs Vascular exam: PRESENT: normal capillary refill. ABSENT: pallor GI/Abdominal exam: PRESENT: normal bowel sounds, soft Extremities exam: ABSENT: joint swelling, pedal edema Musculoskeletal exam: PRESENT: full ROM, normal inspection Neurological exam: PRESENT: alert, awake, oriented to person, oriented to place , oriented to time, oriented to situation, CN II-XII grossly intact. ABSENT: motor sensory deficit Psychiatric exam: PRESENT: appropriate affect, normal mood Skin exam: ABSENT: jaundice, rash, urticaria Results Laboratory Results: 07/10/18 13:14 07/10/18 13:14 Impressions: Chest X-Ray 07/07/18 20:25 IMPRESSION: There is soft tissue swelling in the right paratracheal region of uncertain etiology. This could be due to prominent superior vena cava or due to a mass and needs to be further assessed with a dedicated CT of the chest . Head CT 07/07/18 20:26 IMPRESSION: There is no acute intracranial abnormality. Age related and chronic involutional changes are seen. Chest CT 07/07/18 22:44 IMPRESSION: 1. Soft tissue abnormality noted on chest x-ray is due to tortuosity of the right brachiocephalic artery and right internal carotid artery. No pulmonary masses identified. 2. Coronary artery atherosclerosis. This exam was performed according to our departmental dose-optimization program, which includes automated exposure control, adjustment of the mA and/or kV according to patient size and/or use of iterative reconstruction technique. Qualifiers - * PATIENT BEING DISCHARGED WITH ANY OF THE FOLLOWING DIAGNOSIS: No Plan Discharge Plan: Discharge to home, with home health alf and physical therapy, in improved and stable condition. Time Spent: Greater than 30 Minutes
[2018-07-11 15:38] VITALS: BP 168/79
== END 2018-07-11 16:15 | disposition home health service (06) | DRG 78 ==
LOC: ER 20:01 → EH 07-08 01:21 → INTOOBSV 07-08 01:21 → OBSVTOIN 07-08 14:38 → 3W 07-08 17:57
PROVIDERS: ADMIT Internal Medicine; ATTEND Internal Medicine
DX: I67.4 Hypertensive encephalopathy (principal); I16.1 Hypertensive emergency
CPT/HCPCS: 36415; 70450; 71045; 71260; 80048; 80053; 80061; 80307; 81001; 82550; 82553; 82962; 83036; 83735; 84484; 85025; 85027; 93005; 93010; 96365; 99291; G0378; J0360; J1644; J1650; J3490

== ENCOUNTER → 2019-05-03 | Outpatient (CLI) | payer MEDICARE ==
[2019-05-03 12:42] LABS: APPEARANCE,URINE CLEAR; BILIRUBIN,URINE NEGATIVE (NEGATIVE); COLOR,URINE YELLOW; GLUCOSE, URINE NEGATIVE (NEGATIVE); KETONES,URINE NEGATIVE (NEGATIVE); LEUKOCYTE ESTERASE,URINE NEGATIVE (NEGATIVE); NITRITE,URINE NEGATIVE (NEGATIVE); PROTEIN,URINE NEGATIVE (NEGATIVE); URINE SPECIFIC GRAVITY 1.019; UROBILINOGEN,URINE NEGATIVE mg/dL (<2.0)
[2019-05-03 12:46] LABS: HEMATOCRIT 41.1 % (37.9-51.0); HEMOGLOBIN 13.6 g/dL (13.5-17.0); MEAN CORPUSCULAR HEMOGLOBIN 26.5 pg (27.0-33.4); MEAN CORPUSCULAR HGB CONC 33.1 g/dL (32.0-36.0); MEAN CORPUSCULAR VOLUME 80 fl (80-97); PLATELET COUNT 206 10^3/uL (150-450); RED BLOOD COUNT 5.13 10^6/uL (4.35-5.55); RED CELL DISTRIBUTION WIDTH 13.4 % (11.5-14.0); WHITE BLOOD COUNT 7.3 10^3/uL (4.0-10.5)
[2019-05-03 13:16] LABS: ANION GAP 10 (5-19); BLOOD UREA NITROGEN 27 mg/dL (7-20); CALCIUM 9.2 mg/dL (8.4-10.2); CARBON DIOXIDE 27 mmol/L (22-30); CHLORIDE 105 mmol/L (98-107); GLUCOSE 82 mg/dL (75-110); POTASSIUM 3.8 mmol/L (3.6-5.0); SODIUM 142.1 mmol/L (137-145)
== END ==
LOC: OD 10:58
PROVIDERS: ATTEND Physician Assistant Medical
DX: I10 Essential (primary) hypertension (principal)
CPT/HCPCS: 36415; 80048; 81001; 85027

== ENCOUNTER → 2019-08-30 | Outpatient (CLI) | payer MEDICARE ==
[2019-08-30 13:50] LABS: HEMATOCRIT 41.5 % (37.9-51.0); HEMOGLOBIN 13.7 g/dL (13.5-17.0); MEAN CORPUSCULAR HEMOGLOBIN 26.3 pg (27.0-33.4); MEAN CORPUSCULAR HGB CONC 33.1 g/dL (32.0-36.0); MEAN CORPUSCULAR VOLUME 79 fl (80-97); PLATELET COUNT 226 10^3/uL (150-450); RED BLOOD COUNT 5.23 10^6/uL (4.35-5.55); WHITE BLOOD COUNT 7.2 10^3/uL (4.0-10.5)
[2019-08-30 14:20] LABS: ANION GAP 12 (5-19); BLOOD UREA NITROGEN 23 mg/dL (7-20); CALCIUM 9.4 mg/dL (8.4-10.2); CARBON DIOXIDE 25 mmol/L (22-30); CHLORIDE 105 mmol/L (98-107); GLUCOSE 108 mg/dL (75-110); POTASSIUM 3.7 mmol/L (3.6-5.0)
== END ==
LOC: OD 13:03
PROVIDERS: ATTEND Physician Assistant Medical
DX: I12.9 Hypertensive chronic kidney disease with stage 1 through stage 4 chronic kidney disease, or unspecified chronic kidney disease (principal); N18.2 Chronic kidney disease, stage 2 (mild)
CPT/HCPCS: 36415; 80048; 85027

== ENCOUNTER 2019-11-16 08:26 | Day surgery (SDC) | payer MEDICARE ==
[~2019-11-16 08:26] MED LIST: CHONDR SU A NA/HYALUR INTRAOC KIT (SURGICARE) ONE; EPINEPHRINE INJ/PF 1 MG/1 ML AMPULE ONE; KETOROLAC TROMETHAMINE 0.45% 4 DROP/0.4 ML DROPERETTE OD PRN; LIDOCAINE 1%/PHENYLEPHRINE 1.5% 1 ML VIAL ONE
[2019-11-16] MEDS: BESIFLOXACIN HCL 0.6% OPH SUSP 5 ML BOTTLE OD PRN ×4 (09:29→10:16)
[2019-11-16] MEDS: TETRACAINE HCL 0.5% OPH SOLN 4 ML OD PRN ×3 (09:29→09:54)
[2019-11-16] MEDS: TROPICAMIDE 1% OPH SOLN 15 ML OD PRN ×3 (09:29→09:50)
[2019-11-16] MEDS: CYCLOPENTOLATE 0.2%/PHENYLEPHRINE 1% OPH SOLN 2 ML OD PRN ×3 (09:29→09:50)
[2019-11-16] MEDS ORDERED: MIDAZOLAM 2 MG/2 ML INJ ONE (09:40)
[2019-11-16] MEDS ORDERED: TRYPAN BLUE 0.06 % OPH SOLN 0.5 ML DISP.SYRIN ONE (10:11)
[2019-11-16] MEDS: DORZOLAMIDE HCL 2%/TIMOLOL MALEAT 0.5% OPH SOLN 10 ML OD PRN ×2 (10:16)
--- NOTE | 2019-11-16 15:19 | Operative Report ---
Operative Report-[facility] Operative Report: DATE OF SURGERY: November 16, 2019 PREOPERATIVE DIAGNOSIS: NUCLEAR CATARACT, RIGHT EYE. POSTOPERATIVE DIAGNOSIS: NUCLEAR CATARACT, RIGHT EYE. PROCEDURE PERFORMED: PHACOEMULSIFICATION WITH POSTERIOR CHAMBER INTRAOCULAR LENS IMPLANT, RIGHT EYE. SURGEON: Dwayne Parks DO MEDICATIONS AND ANESTHESIA: Versed: IV Versed Tetracaine drops: 1 to 2 drops given as needed COMPLICATION: None INDICATIONS FOR SURGERY: Medical necessity: Best corrected visual acuity worse than 20/40 secondary to cataracts with impairment of ability to carry out needs or desired activities, blurred vision, visual distortion, reduced contrast sensitivity and/or glare with association functional impairment and supporting documentation/testing, and cataracts causing symptomatic impairment of visual functions not corrected with tolerable changes in glasses or contact lenses interfering with activities of daily life. PROCEDURE: Consent: The risks, benefits and alternatives of this procedures was discussed with the patient. The patient read and signed the consent forms, was identified and was seated in the exam chair. IOL: MX 60E IOL Diopters: 23.5 Phacoemulsification with posterior chamber intraocular lens implant: The face was prepped with 5% povidone iodine solution, and a few drops of 5% povidone iodine solution was instilled into the inferior fornix. A non-fenestrated drape was placed over the eye and the lids were parted with the speculum. A paracentesis was made with a 15 degree blade, and 1% lidocaine MPF followed by viscoelastic was injected into the anterior chamber. A 2.4 mm metal micro- keratome was used to create a temporal clear corneal incision. A circular anterior capsulorrhexis was created, followed by hydro-dissection and hydro- delineation. The phacoemulsification hand piece was inserted and the nucleus was removed with the Phaco chop technique. The irrigation-aspiration hand piece was used to remove the residual cortex, and vacuum the posterior capsule. The capsular bag was inflated and viscoelastic and the above-mentioned IOL was injected into the eye with care to insert both leaning and trailing haptics in the capsular bag. The irrigation/aspiration hand piece was reinserted to remove residual viscoelastic from the capsular bag and anterior chamber. The corneal incision was hydrated, and anterior chamber was inflated with sterile BSS via the paracentesis site, and found to be watertight. Postop medication: 1 drop of prednisolone into operative by followed by 1 drop of Cosopt into operative eye followed by 1 drop of Besivance intraoperative by other:
== END 2019-11-16 10:55 | disposition home or self-care (01) ==
LOC: SC 08:26
PROVIDERS: ATTEND Ophthalmology
DX: H25.11 Age-related nuclear cataract, right eye (principal); Z79.899 Other long term (current) drug therapy; I10 Essential (primary) hypertension; Z86.73 Personal history of transient ischemic attack (TIA), and cerebral infarction without residual deficits; Z79.82 Long term (current) use of aspirin
CPT/HCPCS: 66984; 00142; V2632; J2250; J3490 ×3; A9270; J0171; J2370; 142

== ENCOUNTER 2019-11-30 07:54 | Day surgery (SDC) | payer MEDICARE ==
[~2019-11-30 07:54] MED LIST changes: -KETOROLAC TROMETHAMINE 0.45% 4 DROP/0.4 ML DROPERETTE OD PRN; +KETOROLAC TROMETHAMINE 0.45% 4 DROP/0.4 ML DROPERETTE OS PRN
[2019-11-30] MEDS ORDERED: ONDANSETRON HCL INJ/PF 4 MG/2 ML SDV ONE (08:02)
[2019-11-30] MEDS ORDERED: MIDAZOLAM 2 MG/2 ML INJ ONE ×2 (08:03→08:23)
[2019-11-30] MEDS ORDERED: FENTANYL CITRATE INJ/PF 100 MCG/2 ML AMPUL ONE ×2 (08:03→08:24)
[2019-11-30] MEDS: TETRACAINE HCL 0.5% OPH SOLN 4 ML OS PRN ×3 (08:07→08:37)
[2019-11-30] MEDS: CYCLOPENTOLATE 0.2%/PHENYLEPHRINE 1% OPH SOLN 2 ML OS PRN ×3 (08:08→08:30)
[2019-11-30] MEDS: TROPICAMIDE 1% OPH SOLN 15 ML OS PRN ×3 (08:08→08:30)
[2019-11-30] MEDS: BESIFLOXACIN HCL 0.6% OPH SUSP 5 ML BOTTLE OS PRN ×4 (08:08→09:03)
[2019-11-30] MEDS ORDERED: TRYPAN BLUE 0.06 % OPH SOLN 0.5 ML DISP.SYRIN ONE (08:44)
[2019-11-30] MEDS: DORZOLAMIDE HCL 2%/TIMOLOL MALEAT 0.5% OPH SOLN 10 ML OS PRN ×2 (09:03)
--- NOTE | 2019-11-30 14:28 | Operative Report ---
Operative Report-[facility] Operative Report: DATE OF SURGERY: November 30, 2019 PREOPERATIVE DIAGNOSIS: NUCLEAR CATARACT, LEFT EYE. POSTOPERATIVE DIAGNOSIS: NUCLEAR CATARACT, LEFT EYE. PROCEDURE PERFORMED: PHACOEMULSIFICATION WITH POSTERIOR CHAMBER INTRAOCULAR LENS IMPLANT, LEFT EYE. SURGEON: Dwayne Parks DO MEDICATIONS AND ANESTHESIA: Versed: IV Versed Tetracaine drops: 1 to 2 drops given as needed COMPLICATION: None INDICATIONS FOR SURGERY: Medical necessity: Best corrected visual acuity worse than 20/40 secondary to cataracts with impairment of ability to carry out needs or desired activities, blurred vision, visual distortion, reduced contrast sensitivity and/or glare with association functional impairment and supporting documentation/testing, and cataracts causing symptomatic impairment of visual functions not corrected with tolerable changes in glasses or contact lenses interfering with activities of daily life. PROCEDURE: Consent: The risks, benefits and alternatives of this procedures was discussed with the patient. The patient read and signed the consent forms, was identified and was seated in the exam chair. IOL: MX 60 IOL Diopters: 23.5 Phacoemulsification with posterior chamber intraocular lens implant: The face was prepped with 5% povidone iodine solution, and a few drops of 5% povidone iodine solution was instilled into the inferior fornix. A non-fenestrated drape was placed over the eye and the lids were parted with the speculum. A paracentesis was made with a 15 degree blade, and 1% lidocaine MPF followed by viscoelastic was injected into the anterior chamber. A 2.4 mm metal micro- keratome was used to create a temporal clear corneal incision. A circular anterior capsulorrhexis was created, followed by hydro-dissection and hydro- delineation. The phacoemulsification hand piece was inserted and the nucleus was removed with the Phaco chop technique. The irrigation-aspiration hand piece was used to remove the residual cortex, and vacuum the posterior capsule. The capsular bag was inflated and viscoelastic and the above-mentioned IOL was injected into the eye with care to insert both leaning and trailing haptics in the capsular bag. The irrigation/aspiration hand piece was reinserted to remove residual viscoelastic from the capsular bag and anterior chamber. The corneal incision was hydrated, and anterior chamber was inflated with sterile BSS via the paracentesis site, and found to be watertight. Postop medication:1 drop of prednisolone into operative by followed by 1 drop of Cosopt into operative eye followed by 1 drop of Besivance intraoperative by Other:
--- NOTE | 2019-11-30 14:39 | Operative Report ---
Operative Report-[facility] Operative Report: This is an addendum to this operative report during the case trypan blue was used to stain the capsule making this a complex cataract surgery
== END 2019-11-30 09:39 | disposition home or self-care (01) ==
LOC: SC 07:54
PROVIDERS: ATTEND Ophthalmology
DX: H25.12 Age-related nuclear cataract, left eye (principal); Z98.41 Cataract extraction status, right eye; Z79.899 Other long term (current) drug therapy; I10 Essential (primary) hypertension; Z86.73 Personal history of transient ischemic attack (TIA), and cerebral infarction without residual deficits; Z79.82 Long term (current) use of aspirin
CPT/HCPCS: 66982; V2632; J2250; J3490 ×3; A9270; J0171; J3010; J2370; 142; J2405

== ENCOUNTER 2020-02-06 14:58 | Observation (INO) | payer MEDICARE ==
--- NOTE | 2020-02-06 15:19 | RADIOLOGY REPORT (SQ) ---
EXAM DESCRIPTION: CT HEAD WITHOUT IMAGES COMPLETED DATE/TIME: 02/06/2020 3:03 pm REASON FOR STUDY: slurred speech COMPARISON: 07/07/2018 TECHNIQUE: Axial images acquired through the brain without intravenous contrast. Images reviewed wi th bone, brain and subdural windows. Additional sagittal and coronal reconstructions were generated. Images stored on PACS. All CT scanners at this facility use dose modulation, iterative reconstruction, and/or weight based d osing when appropriate to reduce radiation dose to as low as reasonably achievable (ALARA). [facility]: Dose Right [facility]: CareDose [facility]: Dose Right [facility]: Teradose 4D [facility]: HomeJab RADIATION DOSE: mGy. LIMITATIONS: None. FINDINGS: VENTRICLES: Prominent. CEREBRUM: No masses. No hemorrhage. No midline shift. Areas of low density in the white matter mos t likely due to chronic micro-vascular ischemic change. No evidence for acute infarction. CEREBELLUM: Area of CSF density in the left cerebellar hemisphere consistent with old infarct. No he morrhage. No mass effect. EXTRAAXIAL SPACES: Age-related involutional change. No fluid collections. No masses. ORBITS AND GLOBE: No intra- or extraconal masses. Normal contour of globe without masses. CALVARIUM: No fracture. PARANASAL SINUSES: No fluid or mucosal thickening. SOFT TISSUES: No mass or hematoma. OTHER: No other significant finding. IMPRESSION: Chronic atrophy and small-vessel ischemic changes. 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 It is CSF density on the current study. EVIDENCE OF ACUTE STROKE: NO. COMMENT: Pertinent positive or negative findings of the imaging study reported as a CRITICAL EXAM t mj Damian At15:10 on 02/06/2020. Category of Critical Exam: Stroke protocol. TECHNICAL DOCUMENTATION: JOB ID: [id number] Quality ID # [id number]: Final reports with documentation of one or more dose reduction techniques (e.g., Au tomated exposure control, adjustment of the mA and/or kV according to patient size, use of iterative reconstruction technique) 2010 [employer]- All Rights Reserved Reading location - IP/workstation name: [email or web address]-
--- NOTE | 2020-02-06 15:34 | RADIOLOGY REPORT (SQ) ---
EXAM DESCRIPTION: CHEST SINGLE VIEW IMAGES COMPLETED DATE/TIME: 02/06/2020 3:20 pm REASON FOR STUDY: stroke alert COMPARISON: 07/07/2018 EXAM PARAMETERS: NUMBER OF VIEWS: One view. TECHNIQUE: Single frontal radiographic view of the chest acquired. RADIATION DOSE: NA LIMITATIONS: None. FINDINGS: LUNGS AND PLEURA: No opacities, masses or pneumothorax. No pleural effusion. MEDIASTINUM AND HILAR STRUCTURES: No masses. Contour normal. HEART AND VASCULAR STRUCTURES: Heart normal in size. Normal vasculature. BONES: No acute findings. HARDWARE: None in the chest. OTHER: No other significant finding. IMPRESSION: NO ACUTE RADIOGRAPHIC FINDING IN THE CHEST. TECHNICAL DOCUMENTATION: JOB ID: [id number] 2010 [email or web address]- All Rights Reserved Reading location - IP/workstation name: [email or web address]
[2020-02-06] MEDS ORDERED: HYDRALAZINE HCL 50 MG TABLET PO ONE (15:45)
[2020-02-06 15:51] LABS: ABSOLUTE BASOPHILS # (AUTO) 0.1 10^3/uL (0.0-0.2); ABSOLUTE EOSINOPHILS # (AUTO) 0.3 10^3/uL (0.0-0.6); ABSOLUTE MONOCYTES (AUTO) 0.9 10^3/uL (0.1-1.4); ABSOLUTE NEUT (AUTO) 4.9 10^3/uL (1.7-8.2); BASOPHILS % (AUTO) 0.8 % (0-2); EOSINOPHILS % (AUTO) 4.1 % (0-6); HEMATOCRIT 40.8 % (37.9-51.0); HEMOGLOBIN 13.9 g/dL (13.5-17.0); LYMPHOCYTES % (AUTO) 24.8 % (13-45); MEAN CORPUSCULAR HEMOGLOBIN 27.1 pg (27.0-33.4); MEAN CORPUSCULAR HGB CONC 34.1 g/dL (32.0-36.0); MEAN CORPUSCULAR VOLUME 80 fl (80-97); MONOCYTES % (AUTO) 10.6 % (3-13); PLATELET COUNT 216 10^3/uL (150-450); RED BLOOD COUNT 5.13 10^6/uL (4.35-5.55); SEGMENTED NEUTROPHILS % (AUTO) 59.7 % (42-78); TOTAL CELLS COUNTED % (AUTO) 100 %; WHITE BLOOD COUNT 8.3 10^3/uL (4.0-10.5)
[2020-02-06 16:04] LABS: ALBUMIN 4.2 g/dL (3.5-5.0); ALKALINE PHOSPHATASE 69 U/L (38-126); ANION GAP 9 (5-19); ASPARTATE AMINO TRANSFERASE 22 U/L (17-59); BILIRUBIN,DIRECT 0.3 mg/dL (0.0-0.4); BILIRUBIN,TOTAL 0.5 mg/dL (0.2-1.3); BLOOD UREA NITROGEN 26 mg/dL (7-20); CARBON DIOXIDE 26 mmol/L (22-30); CHLORIDE 103 mmol/L (98-107); GLUCOSE 88 mg/dL (75-110); POTASSIUM 3.6 mmol/L (3.6-5.0); TOTAL PROTEIN 7.3 g/dL (6.3-8.2)
[2020-02-06] MEDS ORDERED: NORMAL SALINE 1000 ML 1,000 ML IV ONE (16:15)
--- NOTE | 2020-02-06 16:28 | ER Document Report ---
ED General - General Chief Complaint: S/S of Possible Stroke Stated Complaint: POSSIBLE STROKE Time Seen by Provider: 02/06/20 15:28 Primary Care Provider: TAL MANCUSO MD [Primary Care Provider] - Follow up as needed Mode of Arrival: Medic Information source: Patient TRAVEL OUTSIDE OF THE [place] IN LAST 30 DAYS: No - HPI Notes: Patient presents by ambulance. Family called the ambulance because he was having some right-sided weakness. I called and spoke with the daughter. She states last night at 6:30 PM patient was having some trouble speaking as well as had right arm and leg weakness. She said this lasted for most of the night and then patient went to sleep. She states when he woke up this morning she noticed that sleep was better and strength was better. However she said about 1:30 PM he went out onto the front porch and was unable to walk back in due to right leg weakness. She states that her son had to carry the patient into the house due to the right leg weakness. Here patient states he feels back to normal. He states that he felt weak earlier but does not feel weak anymore. He states he does not know of any trouble with speaking. He states he had no vomiting or diarrhea. No pain. He states he had no cough cold or congestion. No known coronavirus exposures. He states he has had some small strokes before but he does not know of any permanent problems from the strokes. Patient symptoms have been moderate. They have been intermittent. Nothing made them better or worse. No known radiation of the symptoms. - Related Data Allergies/Adverse Reactions: No Known Allergies Allergy (Verified 11/23/19 08:23) Past Medical History - General Information source: Patient - Social History Smoking Status: Former Smoker Frequency of alcohol use: None Drug Abuse: None Family History: None Patient has suicidal ideation: No Patient has homicidal ideation: No - Past Medical History Cardiac Medical History: Reports: Hx Hypertension Denies: Hx Heart Attack Pulmonary Medical History: Denies: Hx Asthma Neurological Medical History: Reports: Hx Cerebrovascular Accident. Denies: Hx Seizures Renal/ Medical History: Denies: Hx Peritoneal Dialysis GI Medical History: Denies: Hx Hepatitis, Hx Hiatal Hernia, Hx Ulcer Infectious Medical History: Denies: Hx Hepatitis Past Surgical History: Reports: Hx Cholecystectomy, Other. Denies: Hx Open Heart Surgery, Hx Pacemaker Review of Systems - Review of Systems Constitutional: denies: Chills, Fever Cardiovascular: denies: Chest pain, Palpitations Respiratory: denies: Cough, Short of breath -: Yes All other systems reviewed and negative Physical Exam - Vital signs Vitals: Pulse Resp BP Pulse Ox 61 14 202/90 H 100 02/06/20 14:58 02/06/20 14:58 02/06/20 14:58 02/06/20 14:58 Interpretation: Hypertensive - General General appearance: Appears well, Alert - HEENT Head: Normocephalic, Atraumatic Eyes: Normal Pupils: PERRL - Respiratory Respiratory status: No respiratory distress Chest status: Nontender Breath sounds: Normal Chest palpation: Normal - Cardiovascular Rhythm: Regular Heart sounds: Normal auscultation Murmur: No - Abdominal Inspection: Normal Distension: No distension Bowel sounds: Normal Tenderness: Nontender Organomegaly: No organomegaly - Back Back: Normal, Nontender - Extremities General upper extremity: Normal inspection, Nontender, Normal color, Normal ROM, Normal temperature General lower extremity: Normal inspection, Nontender, Normal color, Normal ROM, Normal temperature, Normal weight bearing. No: Mark's sign - Neurological Cognition: Confused Orientation: Disoriented to time Jose Juan Coma Scale Eye Opening: Spontaneous [place] Coma Scale Verbal: Confused [place] Coma Scale Motor: Obeys Commands [place] Coma Scale Total: 14 Speech: Normal Motor strength normal: LUE, RUE, LLE, RLE Sensory: Normal - Psychological Associated symptoms: Normal affect, Normal mood - Skin Skin Temperature: Warm Skin Moisture: Dry Skin Color: Normal Course - Re-evaluation Re-evalutation: 02/06/20 16:34 Patient presents with a history of having right-sided weakness and trouble speaking. Currently has stroke scale is 0. Last known well time was 630 last night. Patient is outside of any window for intervention. However patient's ABCD 2 score is approximately 6. This places him at moderate risk requiring further admission for evaluation. - Vital Signs Vital signs: Temp Pulse Resp BP Pulse Ox 98.7 F 61 17 202/90 H 98 02/06/20 15:00 02/06/20 14:58 02/06/20 15:13 02/06/20 15:13 02/06/20 15:13 - Laboratory Result Diagrams: 02/06/20 15:00 02/06/20 15:00 Laboratory results interpreted by me: 02/06/20 15:00 BUN 26 H Creatinine 1.52 H Est GFR ( Amer) 53 L Est GFR (MDRD) Non-Af 43 L - Diagnostic Test Radiology reviewed: Image reviewed, Reports reviewed - EKG Interpretation by Me EKG shows normal: Sinus rhythm Rate: Normal - 70 Rhythm: NSR Heart block present: 1st Degree Discharge - Discharge Clinical Impression: TIA (transient ischemic attack) Condition: Stable Disposition: ADMITTED INPATIENT Admitting Provider: Kathy (Hospitalist) - day to do admission Unit Admitted: Medical Floor Referrals: TAL MANCUSO MD [Primary Care Provider] - Follow up as needed
[2020-02-06] MEDS ORDERED: NORMAL SALINE 1000 ML 1,000 ML IV PRN (17:02)
[2020-02-06] MEDS ORDERED: ONDANSETRON 4 MG TAB.RAPDIS PO PRN (17:02)
[2020-02-06] MEDS ORDERED: ONDANSETRON HCL INJ/PF 4 MG/2 ML SDV IV PRN (17:02)
[2020-02-06] MEDS ORDERED: ACETAMINOPHEN 325 MG TABLET PO PRN (17:02)
--- NOTE | 2020-02-06 17:33 | PDOC H&P ---
History of Present Illness Admission Date/PCP: 02/06/20 16:48 TAL MANCUSO MD History of Present Illness: KIM GANDHI is a 89 year old male who comes in by EMS for complaints of TIA symptoms. Patient who actually is a very good historian tells me that last night before he went to bed he had "trouble moving his right foot ". Patient tells me that when he woke up this morning it was everything was normal and he had no difficulty walking or talking. Later in the morning he tells me that once again he had trouble raising his right leg and right foot and they told him that his speech was "garbled". Patient tells me that years ago he did have a CVA which resulted in him going to a skilled nursing for a couple years. She is currently living with his niece who is a physical therapist and have LOC according to the patient. States his only other medical problem is hyperte nsion. 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 Tells me he has 3 sons and either 1 or all of them live in [place]. Tells me he is originally from [place] and his grandparents were black foot Indians. And I had a long discussion about CODE STATUS patient does not want to be put on a ventilator does not want to be intubated and wants to just pass on and "be with God". Patient appears to be competent to make this medical decision. Past Medical History Cardiac Medical History: Reports: Hypertension Denies: Myocardial Infarction Pulmonary Medical History: Denies: Asthma Neurological Medical History: Denies: Seizures Neurological History Note: Complaining of some weakness in his right foot and right leg and some dysarthria GI Medical History: Denies: Hepatitis, Hiatal Hernia Hematology: Denies: Anemia, Sickle Cell Disease Past Surgical History Past Surgical History: Reports: Cholecystectomy, Other Denies: Pacemaker Social History Smoking Status: Former Smoker Frequency of Alcohol Use: None Hx Recreational Drug Use: No Drugs: None Hx Prescription Drug Abuse: No - Advance Directive Resuscitation Status: Do Not Resuscitate Family History Family History: None Parental Family History Reviewed: No Children Family History Reviewed: No Sibling(s) Family History Reviewed.: No Medication/Allergy Home Medications: Carvedilol [Coreg 12.5 mg Tablet] 12.5 mg PO Q12 11/15/19 Hydralazine HCl 100 mg PO DAILY 11/15/19 Telmisartan [Micardis 80 mg Tablet] 1 tab PO DAILY 11/15/19 Acetaminophen [Tylenol] 325 mg PO Q6 PRN 11/16/19 Aspirin [Aspirin 81 mg Chewable Tablet] 81 mg PO DAILY 11/16/19 Allergies/Adverse Reactions: No Known Allergies Allergy (Verified 11/23/19 08:23) Review of Systems Constitutional: PRESENT: weakness. ABSENT: chills, fever(s), headache(s), weight gain, weight loss Cardiovascular: ABSENT: chest pain, dyspnea on exertion, edema, orthropnea, palpitations Respiratory: ABSENT: cough, hemoptysis Neurological: PRESENT: abnormal speech, focal weakness Physical Exam Vital Signs: Temp Pulse Resp BP Pulse Ox 98.7 F 61 17 202/90 H 98 02/06/20 15:00 02/06/20 14:58 02/06/20 15:13 02/06/20 15:13 02/06/20 15:13 Intake & Output 02/05/20 02/06/20 02/07/20 06:59 06:59 06:59 Weight 87.5 kg General appearance: PRESENT: no acute distress, other - Very pleasant gentleman and we have carried on a conversation for probably 30 minutes Respiratory exam: PRESENT: clear to auscultation bethany. ABSENT: rales, rhonchi, wheezes Cardiovascular exam: PRESENT: RRR. ABSENT: diastolic murmur, rubs, systolic murmur Neurological exam: PRESENT: alert, awake, oriented to person, oriented to place, oriented to time, oriented to situation, CN II-XII grossly intact, other - No focal deficits. ABSENT: motor sensory deficit Psychiatric exam: PRESENT: appropriate affect, normal mood. ABSENT: homicidal ideation, suicidal ideation Results Laboratory Results: 02/06/20 15:00 02/06/20 15:00 02/06/20 02/06/20 15:00 15:00 WBC 8.3 RBC 5.13 Hgb 13.9 Hct 40.8 MCV 80 MCH 27.1 MCHC 34.1 RDW 14.0 Plt Count 216 Seg Neutrophils % 59.7 Sodium 138.4 Potassium 3.6 Chloride 103 Carbon Dioxide 26 Anion Gap 9 BUN 26 H Creatinine 1.52 H Est GFR ( Amer) 53 L Glucose 88 Calcium 9.0 Total Bilirubin 0.5 AST 22 Alkaline Phosphatase 69 Total Protein 7.3 Albumin 4.2 Impressions: Chest X-Ray 02/06/20 00:00 IMPRESSION: NO ACUTE RADIOGRAPHIC FINDING IN THE CHEST. Head CT 02/06/20 00:00 IMPRESSION: Chronic atrophy and small-vessel ischemic changes. 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 It is CSF density on the current study. EVIDENCE OF ACUTE STROKE: NO. Assessment and Plan - Diagnosis (1) Status post CVA Is this a current diagnosis for this admission?: Yes (2) TIA (transient ischemic attack) Is this a current diagnosis for this admission?: Yes (3) Hypertension Is this a current diagnosis for this admission?: Yes - Plan Summary Summary: Patient will be admitted to the hospital for gentle IV hydration, start him on enteric-coated baby aspirin daily,MRI scan of the brain, repete labs in the morning. he would like to go back home tomorrow if at all possible I agree that we should not keep him any longer than necessary in the hospital. Regulate his blood pressure. Send him back to home as soon is medically stable - Time Time Spent with patient: 35 or more minutes
[2020-02-06 18:10] LABS: PROTHROMBIN TIME 14.2 SEC (11.4-15.4)
[2020-02-06] MEDS: HYDRALAZINE HCL INJ/PF 20 MG/1 ML SDV IV PRN (18:12)
--- NOTE | 2020-02-06 19:05 | RADIOLOGY REPORT (SQ) ---
EXAM DESCRIPTION: MRI HEAD WITHOUT IMAGES COMPLETED DATE/TIME: 02/06/2020 6:49 pm REASON FOR STUDY: TIA COMPARISON: CT 02/06/2020 TECHNIQUE: Multiplanar imaging includes non-contrasted T1, T2, FLAIR, and diffusion with ADC map seq uences. Images stored on PACS. LIMITATIONS: None. FINDINGS: ANATOMY: No anomalies. Normal vascular flow voids. Pituitary fossa normal. CSF SPACES: There is prominence of the lateral ventricles. There is mild cortical atrophy. CEREBRUM: Sulci increased in size. Scattered areas of increased white matter signal on FLAIR imaging . No evidence of hemorrhage, mass, or extraaxial fluid collection. POSTERIOR FOSSA: No signal alteration. No hemorrhage. No edema, masses or mass effect. Internal [place] tory canals, cerebello-pontine angles, mastoids normal. Small old left cerebellar infarction. DIFFUSION IMAGING: Negative for acute or sub-acute infarction. ORBITS: No masses. Globes normal. PARANASAL SINUSES: No fluid levels. Mucosa normal. OTHER: No other significant finding. IMPRESSION: Involutional changes with mild chronic microvascular ischemia. No acute intracranial im aging findings. EVIDENCE OF ACUTE STROKE: NO. TECHNICAL DOCUMENTATION: JOB ID: [id number] 2010 [email or web address]- All Rights Reserved Reading location - IP/workstation name: [email or web address]
[2020-02-06] MEDS ORDERED: FAMOTIDINE 20 MG TABLET PO SCH (22:00)
[2020-02-06] MEDS: ASPIRIN 81 MG TABLET, ENT COATED PO SCH (22:19)
[2020-02-06] MEDS: CLOPIDOGREL BISULFATE 75 MG TABLET PO SCH (22:19)
[2020-02-06] MEDS: ATORVASTATIN CALCIUM 40 MG TABLET PO SCH (22:20)
[2020-02-06] MEDS: CARVEDILOL 12.5 MG TABLET PO SCH (22:20)
[2020-02-06] MEDS: HEPARIN SOD (PORCINE) 5,000 UNIT/ML 1 ML VIAL SUBCUT SCH (22:20)
[2020-02-06] MEDS: FAMOTIDINE 20 MG TABLET PO SCH (22:20)
[2020-02-07] MEDS: HYDRALAZINE HCL INJ/PF 20 MG/1 ML SDV IV PRN ×2 (01:13→08:25)
[2020-02-07] MEDS: HEPARIN SOD (PORCINE) 5,000 UNIT/ML 1 ML VIAL SUBCUT SCH ×3 (06:28→22:55)
[2020-02-07 06:38] LABS: ABSOLUTE BASOPHILS # (AUTO) 0.1 10^3/uL (0.0-0.2); ABSOLUTE EOSINOPHILS # (AUTO) 0.3 10^3/uL (0.0-0.6); ABSOLUTE LYMPHOCYTES (AUTO) 1.5 10^3/uL (0.5-4.7); ABSOLUTE MONOCYTES (AUTO) 0.7 10^3/uL (0.1-1.4); ABSOLUTE NEUT (AUTO) 4.1 10^3/uL (1.7-8.2); BASOPHILS % (AUTO) 0.9 % (0-2); EOSINOPHILS % (AUTO) 4.7 % (0-6); HEMATOCRIT 41.3 % (37.9-51.0); HEMOGLOBIN 13.9 g/dL (13.5-17.0); LYMPHOCYTES % (AUTO) 22.1 % (13-45); MEAN CORPUSCULAR HGB CONC 33.6 g/dL (32.0-36.0); MEAN CORPUSCULAR VOLUME 80 fl (80-97); MONOCYTES % (AUTO) 10.4 % (3-13); PLATELET COUNT 190 10^3/uL (150-450); RED BLOOD COUNT 5.15 10^6/uL (4.35-5.55); SEGMENTED NEUTROPHILS % (AUTO) 61.9 % (42-78); TOTAL CELLS COUNTED % (AUTO) 100 %; WHITE BLOOD COUNT 6.7 10^3/uL (4.0-10.5)
[2020-02-07 06:54] LABS: ANION GAP 8 (5-19); BLOOD UREA NITROGEN 24 mg/dL (7-20); CALCIUM 8.9 mg/dL (8.4-10.2); CARBON DIOXIDE 26 mmol/L (22-30); CHLORIDE 105 mmol/L (98-107); CHOLESTEROL 156.64 mg/dL (0-200); GLUCOSE 110 mg/dL (75-110); POTASSIUM 3.4 mmol/L (3.6-5.0); TRIGLYCERIDES 141 mg/dL (<150)
[2020-02-07 07:04] LABS: DIRECT LDL 108 mg/dL (<100)
--- NOTE | 2020-02-07 08:01 | EKG REPORT ---
SEVERITY:- ABNORMAL ECG - SINUS RHYTHM MULTIPLE VENTRICULAR PREMATURE COMPLEXES FIRST DEGREE AV BLOCK BORDERLINE T ABNORMALITIES, LATERAL LEADS : Confirmed by: Tracie Coronel MD 07-Feb-2020 08:00:51
[2020-02-07] MEDS: ASPIRIN 81 MG TABLET, ENT COATED PO SCH (10:35)
[2020-02-07] MEDS: CARVEDILOL 12.5 MG TABLET PO SCH ×2 (10:35→22:54)
[2020-02-07] MEDS: DOCUSATE SODIUM 100 MG CAPSULE PO SCH (10:35)
[2020-02-07] MEDS: CLOPIDOGREL BISULFATE 75 MG TABLET PO SCH (10:35)
--- NOTE | 2020-02-07 13:28 | PDOC PROGRESS REPORT ---
Subjective Progress Note for:: 02/07/20 Subjective:: 89 year old male who comes in by EMS for complaints of TIA symptoms. Patient who actually is a very good historian tells me that last night before he went to bed he had "trouble moving his right foot ". Patient tells me that when he woke up this morning it was everything was normal and he had no difficulty walking or talking. Later in the morning he tells me that once again he had trouble raising his right leg and right foot and they told him that his speech was "garbled". Patient tells me that years ago he did have a CVA which resulted in him going to a skilled nursing for a couple years. She is currently living with his niece who is a physical therapist and have LOC according to the patient. States his only other medical problem is hypertension. 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 Tells me he has 3 sons and either 1 or all of them live in [place]. Tells me he is originally from [place] and his grandparents were black foot Indians. And I had a long discussion about CODE STATUS patient does not want to be put on a ventilator does not want to be intubated and wants to just pass on and "be with God". Patient appears to be competent to make this medical decision. 02/[id number]-reul-old male admitted with TIA symptoms CT head was negative, MRI of the brain is negative. Pressures are running high plan is to restart his home medications today and to keep him another day for further management. P atient is comfortable in the bed communicating well. Reason For Visit: TIA,CVA,HYPERTENSION Physical Exam Vital Signs: Temp Pulse Resp BP Pulse Ox 97.9 F 58 L 18 181/68 H 99 02/07/20 11:23 02/07/20 11:23 02/07/20 11:23 02/07/20 11:23 02/07/20 11:23 Intake & Output 02/06/20 02/07/20 02/08/20 06:59 06:59 06:59 Intake Total 1240 Balance 1240 Weight 87.4 kg General appearance: PRESENT: no acute distress, thin Head exam: PRESENT: atraumatic Eye exam: PRESENT: PERRLA Mouth exam: PRESENT: moist, tongue midline Teeth exam: PRESENT: poor dentation Neck exam: ABSENT: carotid bruit, JVD, lymphadenopathy, thyromegaly Respiratory exam: PRESENT: decreased breath sounds Cardiovascular exam: PRESENT: RRR. ABSENT: diastolic murmur, rubs, systolic murmur Pulses: PRESENT: normal dorsalis pedis pul GI/Abdominal exam: PRESENT: normal bowel sounds, soft. ABSENT: distended, guarding, mass, organolmegaly, rebound, tenderness Rectal exam: PRESENT: deferred Extremities exam: PRESENT: full ROM. ABSENT: calf tenderness, clubbing, pedal edema Neurological exam: PRESENT: alert Psychiatric exam: PRESENT: appropriate affect, normal mood. ABSENT: homicidal ideation, suicidal ideation Skin exam: PRESENT: dry, intact, warm. ABSENT: cyanosis, rash Results Laboratory Results: 02/07/20 06:16 02/07/20 06:16 02/06/20 02/06/20 02/06/20 15:00 15:00 15:00 WBC 8.3 RBC 5.13 Hgb 13.9 Hct 40.8 MCV 80 MCH 27.1 MCHC 34.1 RDW 14.0 Plt Count 216 Seg Neutrophils % 59.7 Sodium 138.4 Potassium 3.6 Chloride 103 Carbon Dioxide 26 Anion Gap 9 BUN 26 H Creatinine 1.52 H Est GFR ( Amer) 53 L Glucose 88 Calcium 9.0 Magnesium Total Bilirubin 0.5 AST 22 Alkaline Phosphatase 69 Total Protein 7.3 Albumin 4.2 Triglycerides Cholesterol LDL Cholesterol Direct VLDL Cholesterol HDL Cholesterol TSH 4.41 02/07/20 02/07/20 06:16 06:16 WBC 6.7 RBC 5.15 Hgb 13.9 Hct 41.3 MCV 80 MCH 27.0 MCHC 33.6 RDW 14.0 Plt Count 190 Seg Neutrophils % 61.9 Sodium 138.7 Potassium 3.4 L Chloride 105 Carbon Dioxide 26 Anion Gap 8 BUN 24 H Creatinine 1.59 H Est GFR ( Amer) 50 L Glucose 110 Calcium 8.9 Magnesium 1.8 Total Bilirubin AST Alkaline Phosphatase Total Protein Albumin Triglycerides 141 Cholesterol 156.64 LDL Cholesterol Direct 108 H VLDL Cholesterol 28.0 HDL Cholesterol 28 L TSH Impressions: Chest X-Ray 02/06/20 00:00 IMPRESSION: NO ACUTE RADIOGRAPHIC FINDING IN THE CHEST. Head CT 02/06/20 00:00 IMPRESSION: Chronic atrophy and small-vessel ischemic changes. 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 It is CSF density on the current study. EVIDENCE OF ACUTE STROKE: NO. Head MRI 02/06/20 00:00 IMPRESSION: Involutional changes with mild chronic microvascular ischemia. No acute intracranial imaging findings. EVIDENCE OF ACUTE STROKE: NO. Assessment and Plan - Diagnosis (1) TIA (transient ischemic attack) Is this a current diagnosis for this admission?: Yes Plan: 02/07/2020-patient admitted with TIA CT head is negative MRI of the brain is negative for acute pathology. Patient is asymptomatic. Stroke is ruled out. (2) Hypertension Is this a current diagnosis for this admission?: No Plan: 02/07/2020-patient has history of chronic essential hypertension blood pressures are running systolic in the 180s plan is to restart his home medications and once the blood pressure is stabilized we may discharge him tomorrow. - Plan Summary Summary: Patient will be admitted to the hospital for gentle IV hydration, patient is reportedly already on 81 mg ASA daily, therefore will add Plavix daily,MRI scan of the brain, also add Lipitor at night and putting back on his Coreg. Repeat labs in the morning. he would like to go back home tomorrow if at all possible I agree that we should not keep him any longer than necessary in the hospital. Regulate his blood pressure. Send him back to home as soon is medically stable
[2020-02-07] MEDS ORDERED: (PENDING PHARMACY ID) (Hydralazine Hcl [Hydralazine Hcl] 100 MG) PO SCH (14:00)
[2020-02-07] MEDS: HYDRALAZINE HCL 50 MG TABLET PO SCH ×2 (15:01→22:55)
[2020-02-07] MEDS ORDERED: CARVEDILOL 12.5 MG TABLET PO SCH (22:00)
[2020-02-07] MEDS: FAMOTIDINE 20 MG TABLET PO SCH (22:54)
[2020-02-07] MEDS: ATORVASTATIN CALCIUM 40 MG TABLET PO SCH (22:54)
[2020-02-08] MEDS: HYDRALAZINE HCL INJ/PF 20 MG/1 ML SDV IV PRN ×2 (00:53→21:56)
[2020-02-08] MEDS: HEPARIN SOD (PORCINE) 5,000 UNIT/ML 1 ML VIAL SUBCUT SCH ×3 (06:26→21:58)
[2020-02-08] MEDS: HYDRALAZINE HCL 50 MG TABLET PO SCH ×3 (06:32→21:58)
[2020-02-08] MEDS ORDERED: (PENDING PHARMACY ID) (Telmisartan/Hydrochlorothiazid [Telmisartan-Hctz 80-12.5 Mg Tb] 1 T PO SCH (08:00)
[2020-02-08] MEDS ORDERED: HYDROCHLOROTHIAZIDE 12.5 MG TABLET PO SCH ×2 (08:00→09:45)
[2020-02-08] MEDS: LOSARTAN POTASSIUM 50 MG TABLET PO SCH (08:40)
[2020-02-08] MEDS: CARVEDILOL 12.5 MG TABLET PO SCH ×2 (09:08→21:57)
[2020-02-08] MEDS: CLOPIDOGREL BISULFATE 75 MG TABLET PO SCH (09:08)
[2020-02-08] MEDS: ASPIRIN 81 MG TABLET, ENT COATED PO SCH (09:08)
[2020-02-08] MEDS: DOCUSATE SODIUM 100 MG CAPSULE PO SCH (09:08)
--- NOTE | 2020-02-08 09:49 | PDOC PROGRESS REPORT ---
Subjective Progress Note for:: 02/08/20 Subjective:: 89 year old male who comes in by EMS for complaints of TIA symptoms. Patient who actually is a very good historian tells me that last night before he went to bed he had "trouble moving his right foot ". Patient tells me that when he woke up this morning it was everything was normal and he had no difficulty walking or talking. Later in the morning he tells me that once again he had trouble raising his right leg and right foot and they told him that his speech was "garbled". 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 She is currently living with his niece who is a physical therapist and have LOC according to the patient. States his only other medical problem is hypertension. 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 Tells me he has 3 sons and either 1 or all of them live in [place]. Tells me he is originally from [place] and his grandparents were black foot Indians. And I had a long discussion about CODE STATUS patient does not want to be put on a ventilator does not want to be intubated and wants to just pass on and "be with God". Patient appears to be competent to make this medical decision. 02/[id number]-xbqu-old male admitted with TIA symptoms CT head was negative, MRI of the brain is negative. Pressures are running high plan is to restart his home medications today and to keep him another day for further management. P atient is comfortable in the bed communicating well. 02/[id number]/[id number]-nbtq-old male admitted with TIAs-like symptoms he has a previous history of strokes new stroke is ruled out. But blood pressures are persistently high latest blood pressure is 207/90. Presently is on Coreg 12.5 mg p.o. twice daily, losartan 100 mg p.o. daily, hydrochlorothiazide 12.5 mg p.o. daily, hydralazine 100 mg p.o. every 8 hours. Plan to increase hydrochlorothiazide to 25 mg p.o. daily and minoxidil 2.5 mg added to the m edication today. In my opinion patient is unsafe to go home with his high blood pressures. Reason For Visit: TIA,CVA,HYPERTENSION Physical Exam Vital Signs: Temp Pulse Resp BP Pulse Ox 97.6 F 60 18 207/90 H 100 02/08/20 08:23 02/08/20 08:23 02/08/20 08:23 02/08/20 08:23 02/08/20 08:23 Intake & Output 02/07/20 02/08/20 02/09/20 06:59 06:59 06:59 Intake Total 1240 1070 Output Total 75 Balance 1240 995 Weight 87.4 kg 88.2 kg General appearance: PRESENT: no acute distress, well-developed Head exam: PRESENT: atraumatic Eye exam: PRESENT: PERRLA Mouth exam: PRESENT: dry mucosa Neck exam: ABSENT: carotid bruit, JVD, lymphadenopathy, thyromegaly Respiratory exam: PRESENT: decreased breath sounds Cardiovascular exam: PRESENT: bradycardia Vascular exam: PRESENT: normal capillary refill GI/Abdominal exam: PRESENT: normal bowel sounds, soft. ABSENT: distended, guarding, mass, organolmegaly, rebound, tenderness Rectal exam: PRESENT: deferred Extremities exam: PRESENT: full ROM. ABSENT: calf tenderness, clubbing, pedal edema Neurological exam: PRESENT: alert, awake, oriented to person, oriented to place, oriented to time, oriented to situation, CN II-XII grossly intact. ABSENT: motor sensory deficit Psychiatric exam: PRESENT: appropriate affect, normal mood. ABSENT: homicidal ideation, suicidal ideation Results Laboratory Results: 02/07/20 06:16 02/07/20 06:16 Impressions: Chest X-Ray 02/06/20 00:00 IMPRESSION: NO ACUTE RADIOGRAPHIC FINDING IN THE CHEST. Head CT 02/06/20 00:00 IMPRESSION: Chronic atrophy and small-vessel ischemic changes. 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 It is CSF density on the current study. EVIDENCE OF ACUTE STROKE: NO. Head MRI 02/06/20 00:00 IMPRESSION: Involutional changes with mild chronic microvascular ischemia. No acute intracranial imaging findings. EVIDENCE OF ACUTE STROKE: NO. Assessment and Plan - Diagnosis (1) TIA (transient ischemic attack) Is this a current diagnosis for this admission?: Yes Plan: 02/07/2020-patient admitted with TIA CT head is negative MRI of the brain is negative for acute pathology. Patient is asymptomatic. Stroke is ruled out. 02/08/2020-patient admitted with symptoms of TIA, CT head is negative, MRI of the brain is negative for acute pathology. Stroke is ruled out. (2) Hypertension Is this a current diagnosis for this admission?: No Plan: 02/07/2020-patient has history of chronic essential hypertension blood pressures are running systolic in the 180s plan is to restart his home medications and once the blood pressure is stabilized we may discharge him tomorrow. 02/08/2020-patient has persistent high blood pressures latest blood pressure is 207/90. Presently on hydralazine 12.5 mg p.o. daily, losartan 100 mg p.o. daily, hydralazine 100 mg p.o. every 8 hours, IV hydralazine 10 mg every 6 hours as needed. To start him on minoxidil 2.5 mg p.o. daily, hydrochlorothiazide was increased to 12.5 mg p.o. daily. - Plan Summary Summary: Patient will be admitted to the hospital for gentle IV hydration, patient is reportedly already on 81 mg ASA daily, therefore will add Plavix daily,MRI scan of the brain, also add Lipitor at night and putting back on his Coreg. Repeat labs in the morning. he would like to go back home tomorrow if at all possible I agree that we should not keep him any longer than necessary in the hospital. Regulate his blood pressure. Send him back to home as soon is medically stable
[2020-02-08] MEDS ORDERED: ASPIRIN 81 MG TABLET, CHEWABLE PO SCH (10:00)
[2020-02-08] MEDS: MINOXIDIL 2.5 MG TABLET PO SCH (14:02)
[2020-02-08] MEDS ORDERED: AMLODIPINE BESYLATE 10 MG TABLET PO ONE (17:41)
[2020-02-08] MEDS: ATORVASTATIN CALCIUM 40 MG TABLET PO SCH (21:57)
[2020-02-08] MEDS: FAMOTIDINE 20 MG TABLET PO SCH (21:57)
[2020-02-09] MEDS: HEPARIN SOD (PORCINE) 5,000 UNIT/ML 1 ML VIAL SUBCUT SCH (05:46)
[2020-02-09] MEDS: HYDRALAZINE HCL 50 MG TABLET PO SCH (05:49)
[2020-02-09 07:31] LABS: APPEARANCE,URINE CLEAR; BILIRUBIN,URINE NEGATIVE (NEGATIVE); COLOR,URINE YELLOW; GLUCOSE, URINE NEGATIVE (NEGATIVE); KETONES,URINE NEGATIVE (NEGATIVE); PROTEIN,URINE NEGATIVE (NEGATIVE); URINE SPECIFIC GRAVITY 1.017; UROBILINOGEN,URINE NEGATIVE mg/dL (<2.0)
[2020-02-09] MEDS ORDERED: HYDROCHLOROTHIAZIDE 25 MG TABLET PO SCH (08:00)
[2020-02-09] MEDS: LOSARTAN POTASSIUM 50 MG TABLET PO SCH (08:43)
[2020-02-09 09:03] VITALS: BP 199/98
--- NOTE | 2020-02-09 09:19 | PDOC DISCHARGE SUMMARY ---
Impression - Admit/DC Date/PCP Admission Date/Primary Care Provider: 02/06/20 16:48 TAL MANCUSO MD Discharge Date: 02/09/20 - Discharge Diagnosis (1) TIA (transient ischemic attack) Is this a current diagnosis for this admission?: Yes (2) Hypertension Is this a current diagnosis for this admission?: No - Assessment Summary: Patient will be admitted to the hospital for gentle IV hydration, patient is reportedly already on 81 mg ASA daily, therefore will add Plavix daily,MRI scan of the brain, also add Lipitor at night and putting back on his Coreg. Repeat labs in the morning. he would like to go back home tomorrow if at all possible I agree that we should not keep him any longer than necessary in the hospital. Regulate his blood pressure. Send him back to home as soon is medically stable 02/09/2015-52-bmsr-old male with history of CVA, hypertension on aspirin, Plavix admitted with a diagnosis of transient ischemic attack. CT head was negative for acute pathology MRI of the brain was negative for acute pathology. His blood pressures are relatively uncontrolled. We had a tough time adjusting medications and controlling the blood pressure. Finally the blood pressure this morning is 140/85. Prescription's were given for the new medications and patient is advised about low-salt diet. He was strongly advised to follow-up with primary care physician in 3 to 5 days. - Additional Information Resuscitation Status: Do Not Resuscitate Discharge Diet: Cardiac Discharge Activity: Activity As Tolerated Referrals: TAL MANCUSO MD [Primary Care Provider] - 02/13/20 11:00 am Prescriptions: Losartan Potassium [Cozaar 50 mg Tablet] 100 mg PO QAM #30 tablet Hydrochlorothiazide [Hydrodiuril 25 mg Tablet] 25 mg PO QAM #30 tablet Minoxidil [Loniten 2.5 mg Tablet] 2.5 mg PO DAILY #30 tablet Amlodipine Besylate [Norvasc 10 mg Tablet] 10 mg PO DAILY #30 tablet Home Medications: Carvedilol [Coreg 12.5 mg Tablet] 12.5 mg PO Q12 11/15/19 Hydralazine HCl 100 mg PO TID 11/15/19 Aspirin [Aspirin 81 mg Chewable Tablet] 81 mg PO DAILY 11/16/19 Telmisartan/Hydrochlorothiazid [Telmisartan-Hctz 80-12.5 mg Tb] 1 tab PO QAM 02/06/20 Amlodipine Besylate [Norvasc 10 mg Tablet] 10 mg PO DAILY #30 tablet 02/09/20 Aspirin [Ecotrin 81 mg EC Tablet] 81 mg PO DAILY tabec 02/09/20 Atorvastatin Calcium [Lipitor 40 mg Tablet] 40 mg PO QHS tablet 02/09/20 Carvedilol [Coreg 12.5 mg Tablet] 12.5 mg PO Q12 tablet 02/09/20 Clopidogrel Bisulfate [Plavix 75 mg Tablet] 75 mg PO DAILY tablet 02/09/20 Hydrochlorothiazide [Hydrodiuril 25 mg Tablet] 25 mg PO QAM #30 tablet 02/09/20 Losartan Potassium [Cozaar 50 mg Tablet] 100 mg PO QAM #30 tablet 02/09/20 Minoxidil [Loniten 2.5 mg Tablet] 2.5 mg PO DAILY #30 tablet 02/09/20 History of Present Illiness History of Present Illness: KIM GANDHI is a 89 year old male 89 year old male who comes in by EMS for complaints of TIA symptoms. Patient who actually is a very good historian tells me that last night before he went to bed he had "trouble moving his right foot ". Patient tells me that when he woke up this morning it was everything was normal and he had no difficulty walking or talking. Later in the morning he tells me that once again he had trouble raising his right leg and right foot and they told him that his speech was "ga rbled". 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 She is currently living with his niece who is a physical therapist and have LOC according to the patient. States his only other medical problem is hypertension. 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 Tells me he has 3 sons and either 1 or all of them live in [place]. Tells me he is originally from [place] and his grandparents were black foot Indians. And I had a long discussion about CODE STATUS patient does not want to be put on a ventilator does not want to be intubated and wants to just pass on and "be with God". Patient appears to be competent to make this medical decision. Hospital Course Hospital Course: 89 year old male who comes in by EMS for complaints of TIA symptoms. Patient who actually is a very good historian tells me that last night before he went to bed he had "trouble moving his right foot ". Patient tells me that when he woke up this morning it was everything was normal and he had no difficulty walking or talking. Later in the morning he tells me that once again he had trouble raising his right leg and right foot and they told him that his speech was "garbled". 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 She is currently living with his niece who is a physical therapist and have LOC according to the patient. States his only other medical problem is hypertension. 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 Tells me he has 3 sons and either 1 or all of them live in [place]. Tells me he is originally from [place] and his grandparents were black foot Indians. And I had a long discussion about CODE STATUS patient does not want to be put on a ventilator does not want to be intubated and wants to just pass on and "be with God". Patient appears to be competent to make this medical decision. 02/07/[id number]-lhzw-old male admitted with TIA symptoms CT head was negative, MRI of the brain is negative. Pressures are running high plan is to restart his home medications today and to keep him another day for further management. Patient is comfortable in the bed communicating well. 02/08/[id number]-vnbd-old male admitted with TIAs-like symptoms he has a previous history of strokes new stroke is ruled out. But blood pressures are persistently high latest blood pressure is 207/90. Presently is on Coreg 12.5 mg p.o. twice daily, losartan 100 mg p.o. daily, hydrochlorothiazide 12.5 mg p.o. daily, hydralazine 100 mg p.o. every 8 hours. Plan to increase hydrochlorothiazide to 25 mg p.o. daily and minoxidil 2.5 mg added to the m edication today. In my opinion patient is unsafe to go home with his high blood pressures. 02/09/2020-no acute events in the last 24 hours. Patient is doing well. Alert awake communicating well. Blood pressure is 140/85 stable. Pulse ox is 99%. Prescriptions were given to the patient. He is advised to be compliant with his diet and he was strongly advised to follow-up with primary care physician in 3 to 5 days. Physical Exam Vital Signs: Temp Pulse Resp BP Pulse Ox 98.3 F 71 16 199/98 H 99 02/09/20 09:00 02/09/20 09:00 02/09/20 09:00 02/09/20 09:00 02/09/20 09:00 Intake & Output 02/08/20 02/09/20 02/10/20 06:59 06:59 06:59 Intake Total 1070 680 Output Total 75 1675 Balance 995 -995 Weight 88.2 kg 87.4 kg General appearance: PRESENT: no acute distress, well-developed Head exam: PRESENT: atraumatic Eye exam: PRESENT: PERRLA Mouth exam: PRESENT: moist, tongue midline Teeth exam: PRESENT: poor dentation Neck exam: ABSENT: carotid bruit, JVD, lymphadenopathy, thyromegaly Respiratory exam: PRESENT: decreased breath sounds Cardiovascular exam: PRESENT: RRR. ABSENT: diastolic murmur, rubs, systolic murmur GI/Abdominal exam: PRESENT: normal bowel sounds, soft. ABSENT: distended, guarding, mass, organolmegaly, rebound, tenderness Rectal exam: PRESENT: deferred Extremities exam: PRESENT: full ROM. ABSENT: calf tenderness, clubbing, pedal edema Neurological exam: PRESENT: alert, awake, oriented to person, oriented to place, oriented to time, oriented to situation, CN II-XII grossly intact. ABSENT: motor sensory deficit Psychiatric exam: PRESENT: appropriate affect, normal mood. ABSENT: homicidal ideation, suicidal ideation Results Laboratory Results: WBC 6.7 10^3/uL (4.0-10.5) 02/07/20 06:16 RBC 5.15 10^6/uL (4.35-5.55) 02/07/20 06:16 Hgb 13.9 g/dL (13.5-17.0) 02/07/20 06:16 Hct 41.3 % (37.9-51.0) 02/07/20 06:16 MCV 80 fl (80-97) 02/07/20 06:16 MCH 27.0 pg (27.0-33.4) 02/07/20 06:16 MCHC 33.6 g/dL (32.0-36.0) 02/07/20 06:16 RDW 14.0 % (11.5-14.0) 02/07/20 06:16 Plt Count 190 10^3/uL (150-450) 02/07/20 06:16 Lymph % (Auto) 22.1 % (13-45) 02/07/20 06:16 Winn % (Auto) 10.4 % (3-13) 02/07/20 06:16 Eos % (Auto) 4.7 % (0-6) 02/07/20 06:16 Baso % (Auto) 0.9 % (0-2) 02/07/20 06:16 Absolute Neuts (auto) 4.1 10^3/uL (1.7-8.2) 02/07/20 06:16 Absolute Lymphs (auto) 1.5 10^3/uL (0.5-4.7) 02/07/20 06:16 Absolute Monos (auto) 0.7 10^3/uL (0.1-1.4) 02/07/20 06:16 Absolute Eos (auto) 0.3 10^3/uL (0.0-0.6) 02/07/20 06:16 Absolute Basos (auto) 0.1 10^3/uL (0.0-0.2) 02/07/20 06:16 Seg Neutrophils % 61.9 % (42-78) 02/07/20 06:16 PT 14.2 SEC (11.4-15.4) 02/06/20 15:00 INR 1.10 02/06/20 15:00 APTT 33.3 SEC (23.5-35.8) 02/07/20 06:16 Sodium 138.7 mmol/L (137-145) 02/07/20 06:16 Potassium 3.4 mmol/L (3.6-5.0) L 02/07/20 06:16 Chloride 105 mmol/L (98-107) 02/07/20 06:16 Carbon Dioxide 26 mmol/L (22-30) 02/07/20 06:16 Anion Gap 8 (5-19) 02/07/20 06:16 BUN 24 mg/dL (7-20) H 02/07/20 06:16 Creatinine 1.59 mg/dL (0.52-1.25) H 02/07/20 06:16 Est GFR ( Amer) 50 (>60) L 02/07/20 06:16 Est GFR (MDRD) Non-Af 41 (>60) L 02/07/20 06:16 Glucose 110 mg/dL (75-110) 02/07/20 06:16 Calcium 8.9 mg/dL (8.4-10.2) 02/07/20 06:16 Magnesium 1.8 mg/dL (1.6-2.3) 02/07/20 06:16 Total Bilirubin 0.5 mg/dL (0.2-1.3) 02/06/20 15:00 Direct Bilirubin 0.3 mg/dL (0.0-0.4) 02/06/20 15:00 Neonat Total Bilirubin Not Reportable 02/06/20 15:00 Neonat Direct Bilirubin Not Reportable 02/06/20 15:00 Neonat Indirect Bili Not Reportable 02/06/20 15:00 AST 22 U/L (17-59) 02/06/20 15:00 ALT 17 U/L (<50) 02/06/20 15:00 Alkaline Phosphatase 69 U/L (38-126) 02/06/20 15:00 Total Protein 7.3 g/dL (6.3-8.2) 02/06/20 15:00 Albumin 4.2 g/dL (3.5-5.0) 02/06/20 15:00 Triglycerides 141 mg/dL (<150) 02/07/20 06:16 Cholesterol 156.64 mg/dL (0-200) 02/07/20 06:16 LDL Cholesterol Direct 108 mg/dL (<100) H 02/07/20 06:16 VLDL Cholesterol 28.0 mg/dL (10-31) 02/07/20 06:16 HDL Cholesterol 28 mg/dL (>40) L 02/07/20 06:16 TSH 4.41 uIU/mL (0.47-4.68) 02/06/20 15:00 Urine Color YELLOW 02/09/20 06:30 Urine Appearance CLEAR 02/09/20 06:30 Urine pH 5.0 (5.0-9.0) 02/09/20 06:[address] 1.017 02/09/20 06:30 Urine Protein NEGATIVE mg/dL (NEGATIVE) 02/09/20 06:30 Urine Glucose (UA) NEGATIVE mg/dL (NEGATIVE) 02/09/20 06:30 Urine Ketones NEGATIVE mg/dL (NEGATIVE) 02/09/20 06:30 Urine Blood NEGATIVE (NEGATIVE) 02/09/20 06:30 Urine Nitrite (Reflex) NEGATIVE (NEGATIVE) 02/09/20 06:30 Urine Bilirubin NEGATIVE (NEGATIVE) 02/09/20 06:30 Urine Urobilinogen NEGATIVE mg/dL (<2.0) 02/09/20 06:30 Leukocyte Esterase Rfl NEGATIVE (NEGATIVE) 02/09/20 06:30 Urine RBC (Auto) 2 /HPF 02/09/20 06:30 Urine WBC (Reflex) 1 /HPF 02/09/20 06:30 Urine Mucus (Auto) RARE /LPF 02/09/20 06:30 Urine Ascorbic Acid NEGATIVE (NEGATIVE) 02/09/20 06:30 Impressions: Chest X-Ray 02/06/20 00:00 IMPRESSION: NO ACUTE RADIOGRAPHIC FINDING IN THE CHEST. Head CT 02/06/20 00:00 IMPRESSION: Chronic atrophy and small-vessel ischemic changes. 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 It is CSF density on the current study. EVIDENCE OF ACUTE STROKE: NO. Head MRI 02/06/20 00:00 IMPRESSION: Involutional changes with mild chronic microvascular ischemia. No acute intracranial imaging findings. EVIDENCE OF ACUTE STROKE: NO. Plan Plan of Treatment: Patient is advised to be compliant with medications and he was advised to fill the new prescriptions and fall precautions are advised and he was advised to follow-up with primary care physician Dr. Cifuentes in 1 week time. Time Spent: Greater than 30 Minutes Stroke Is this a Stroke Patient?: No Acute Heart Failure - Is this a Heart Failure Patient?: No
[2020-02-09] MEDS: MINOXIDIL 2.5 MG TABLET PO SCH (09:20)
[2020-02-09] MEDS: DOCUSATE SODIUM 100 MG CAPSULE PO SCH (09:20)
[2020-02-09] MEDS: CLOPIDOGREL BISULFATE 75 MG TABLET PO SCH (09:20)
[2020-02-09] MEDS: CARVEDILOL 12.5 MG TABLET PO SCH (09:20)
[2020-02-09] MEDS: ASPIRIN 81 MG TABLET, ENT COATED PO SCH (09:20)
[2020-02-09] MEDS ORDERED: AMLODIPINE BESYLATE 10 MG TABLET PO SCH (10:00)
== END 2020-02-09 10:28 | disposition home or self-care (01) ==
LOC: ER 14:58 → INTOOBSV 16:48 → EH 16:48 → 3S 19:16
PROVIDERS: ADMIT Family Medicine; ATTEND Internal Medicine
DX: G45.9 Transient cerebral ischemic attack, unspecified (principal); I10 Essential (primary) hypertension; I44.0 Atrioventricular block, first degree; R53.1 Weakness; R40.2362 Coma scale, best motor response, obeys commands, at arrival to emergency department; R40.2142 Coma scale, eyes open, spontaneous, at arrival to emergency department; R40.2242 Coma scale, best verbal response, confused conversation, at arrival to emergency department; Z87.891 Personal history of nicotine dependence; Z86.73 Personal history of transient ischemic attack (TIA), and cerebral infarction without residual deficits; Z79.82 Long term (current) use of aspirin; Z66 Do not resuscitate; Z79.899 Other long term (current) drug therapy
CPT/HCPCS: 93005; 99285; 36415 ×2; 83735; 84443; 85025 ×2; 85610; 85730; 80048; 80053; 81001; 80061; 70551; 71045; 70450; 93010; A9270 ×32; J0360 ×3; J7030 ×2; J3490

== ENCOUNTER → 2020-05-07 | Outpatient (CLI) | payer MEDICARE ==
[2020-05-07 15:38] VITALS: BP 101/52
--- NOTE | 2020-05-07 15:38 | ER RDC ASSESSMENT REPORT ---
Intake - In the Last 14 days Have you traveled outside [place]?: No Have you been in close contact with someone CONFIRMED: Yes Worked in Healthcare?: No - Symptoms Subjective Fever([place] feverish): No Chills: No Muscule Aches: No Runny Nose: No Sore Throat: No Cough (New or worsening chronic cough): No Shortness of breath: No Nausea or Vomiting: No Headache: No Abdominal Pain: Yes Diarrhea(3 or more loose stools in last 24 hours): Yes - Do you have any of the following Chronic lung disease: Asthma or emphysema or COPD: No Cystic Fibrosis: No Diabetes: No High Blood Pressure: No Cardiovascular Disease: No Chronic Kidney Disease: No Chronic Liver Disease: No Chronic blood disorder like Sickle Cell Disease: No Weak immune system due to disease or medication: No Neurologic condition that limits movement: Yes Neurological Condition Comment: CVA December, Developmental delay - Moderate to Severe: No Recent (within past 2 weeks) or current : No Morbid Obesity (>100 pounds over ideal weight): No - Objective Temperature: 98.1 F Pulse Rate: 60 Respiratory Rate: 16 Blood Pressure: 101/52 O2 Sat by Pulse Oximetry: 94 Objective: Given above, testing performed: flu, covid Disposition: Home; Selfcare General - General Chief Complaint: Loose Stools Time Seen by Provider: 05/07/20 14:00 Mode of Arrival: Ambulatory Information source: Patient, Relative Cannot obtain history due to: Dementia - HPI Notes: 89-year-old male presents to [facility] clinic for COVID-19 testing. Patient's daughter has tested positive for COVID-19, the patient's daughter does reside with the patient and his spouse and acts as caregiver for both of them. Onset of symptoms 05/04/2020. They are reporting mild diarrhea and associated abdominal cramping. They deny any fever, chills, myalgia, shortness of breath, sore throat, cough, nausea, abdominal pain or diarrhea. No exacerbating or relieving factors. Patient does have medical history significant for recent CVA and HTN. - Related Data Allergies/Adverse Reactions: No Known Allergies Allergy (Verified 11/23/19 08:23) Past Medical History - General Information source: Patient, Relative Cannot obtain history due to: Dementia - Social History Smoking Status: Never Smoker Family History: None - Past Medical History Cardiac Medical History: Reports: Hx Hypertension Denies: Hx Heart Attack Pulmonary Medical History: Reports: None Denies: Hx Asthma EENT Medical History: Reports: None Neurological Medical History: Reports: Hx Cerebrovascular Accident. Denies: Hx Seizures Endocrine Medical History: Reports: None Renal/ Medical History: Reports: None. Denies: Hx Peritoneal Dialysis Malignancy Medical History: Reports None GI Medical History: Reports: None. Denies: Hx Hepatitis, Hx Hiatal Hernia, Hx Ulcer Musculoskeletal Medical History: Reports None Skin Medical History: Reports None Psychiatric Medical History: Reports: None Traumatic Medical History: Reports: None Infectious Medical History: Reports: None. Denies: Hx Hepatitis Past Surgical History: Reports: Hx Cholecystectomy, Other. Denies: Hx Open Heart Surgery, Hx Pacemaker Physical Exam - General General appearance: Appears well, Alert In distress: None Notes: PHYSICAL EXAMINATION: GENERAL: Well-appearing and in no acute distress. HEAD: Atraumatic, normocephalic. EYES: sclera anicteric, conjunctiva are normal. ENT: nares patent. Moist mucous membranes. NECK: Normal range of motion, supple without lymphadenopathy LUNGS: CTAB and equal. No wheezes rales or rhonchi. HEART: Regular rate and rhythm without murmurs ABDOMEN: Soft, nontender, normal bowel sounds, no guarding. EXTREMITIES: Normal range of motion, no pitting edema. No cyanosis. NEUROLOGICAL: Cranial nerves grossly intact. Normal speech. Dementia PSYCH: Normal mood, normal affect. SKIN: Warm, Dry, normal turgor, no rashes or lesions noted Patient Education/Counseling Counseling/Education: Patient presents with lower GI symptoms worrisome for possible Covid 19. Patient did have recent exposure to COVID 19 positive daughter who acts as his caregiver. Patient does not have emergency worrying symptoms such as difficulty breathing, shortness of breath, chest pain, pressure, confusion or cyanosis. Patient appears suitable for discharge as vital signs are stable and patient is nontoxic in appearance. Good return precautions have been discussed with patient, patient verbalized understanding and is agreeable with discharge plan of care at this time. Guidance for worsening S/SX: Patient presents with upper respiratory symptoms worrisome for possible Covid 19. Patient does not have emergency worrying symptoms such as difficulty williams athing, shortness of breath, chest pain, pressure, confusion or cyanosis. Patient appears suitable for discharge as vital signs are stable and patient is nontoxic in appearance. Good return precautions have been discussed with patient, patient verbalized understanding and is agreeable with discharge plan of care at this time. RDC Discharge - Discharge Clinical Impression: Encounter for screening laboratory testing for COVID-19 virus Diarrhea Qualifiers: Diarrhea type: unspecified type Qualified Code(s): R19.7 - Diarrhea, unspecified Condition: Good Disposition: Home; Selfcare
== END ==
LOC: RDC 13:21
PROVIDERS: ATTEND Registered Nurse
DX: Z20.828 Contact with and (suspected) exposure to other viral communicable diseases (principal); R19.7 Diarrhea, unspecified; R10.9 Unspecified abdominal pain; F03.90 Unspecified dementia, unspecified severity, without behavioral disturbance, psychotic disturbance, mood disturbance, and anxiety; I10 Essential (primary) hypertension; Z86.73 Personal history of transient ischemic attack (TIA), and cerebral infarction without residual deficits
CPT/HCPCS: U0003; C9803; 87635; 99201; 99211